=== PATIENT | female | born 1975 | race Caucasian/White ===

== ENCOUNTER → 2018-02-18 11:11 | Outpatient (POV) | payer BC, SELFPAY ==
[2018-02-18 11:21] VITALS: BP 143/92; PULSE 109; RESP 22; O2SAT 100; BMI 21.2
--- NOTE | 2018-02-18 11:48 | HMH.PAINSOAP ---
[facility] Pain Management SOAP Note Subjective:: Is a pleasant 42-year-old white female who presents today for consultation in regards to her pain. Patient has had a left SI joint injection in the past. She states she got 80% relief up to 6 weeks after that. Patient states she is here today for medication management. Patient was unable to attend a pill count with her primary care physician. Patient currently full-time employee of [employer]. Patient had a nuchal swab done at her primary care physician which showed positive for oxycodone instead of hydrocodone. Patient no longer receiving medication from her primary care. Patient was on a low-dose [place] 5 mg 1 p.o. twice daily. I will send the patient for urine drug screen and confirmation today. I discussed with her that we never typically take over medications on her first visit and she has not been seen for a year. I also discussed that we do not typically take over medications for people who have failed pill counts or drug screens. Patient states she understands. Patient is also interested in an additional left SI joint injection. Patient has Crohn's disease and is being followed by Dr. Devonte Davis. ROS General: no recent weight change, no fever, no sleep disturbances Respiratory: no cough, no shortness of air, no recurring pulmonary infections Cardiovascular/Peripheral Vascular: No chest pain, No palpitations, no edema, no shortness of breath. Gastrointestinal: Crohn's disease Genitourinary: no incontinence Musculoskeletal: SI joint pain Psychiatric: normal mood/ affect, Neurological: [denies weakness in extremities], [denies balance issues] Objective:: Physical Exam General: Alert and oriented x3, no acute distress, pleasant and cooperative, [on room air] Lungs: Resps E/U, Symmetrical chest expansion, Eyes: PERRL Musculoskeletal: Flexion and extension of lumbar spine somewhat guarded secondary to pain, deep tendon reflexes normal, strength in upper and lower extremities [5/5], antalgic gait noted, positive Jose's test on the left side, extreme point tenderness over left SI Neurological: speech clear, softlines supervisor equal, no gross sensory deficits Assessment:: Sacroiliitis, Crohn's disease Plan:: We will send this patient for UDS and a confirmation. Patient understands that we will not make any decisions about medical management until we review all of this. We will schedule left SI joint injection for this patient. Given the efficacy of her last one I believe that this would be beneficial. Patient is on anti-inflammatories. This note was dictated using voice recognition software and may contain errors or omissions
--- NOTE | 2018-02-18 11:51 | P.CONS_ITS ---
[facility] Pain Management SOAP Note Subjective:: Is a pleasant 42-year-old white female who presents today for consultation in regards to her pain. Patient has had a left SI joint injection in the past. She states she got 80% relief up to 6 weeks after that. Patient states she is here today for medication management. Patient was unable to attend a pill count with her primary care physician. Patient currently full-time employee of [employer]. Patient had a nuchal swab done at her primary care physician which showed positive for oxycodone instead of hydrocodone. Patient no longer receiving medication from her primary care. Patient was on a low-dose [place] 5 mg 1 p.o. twice daily. I will send the patient for urine drug screen and confirmation today. I discussed with her that we never typically take over medications on her first visit and she has not been seen for a year. I also discussed that we do not typically take over medications for people who have failed pill counts or drug screens. Patient states she understands. Patient is also interested in an additional left SI joint injection. Patient has Crohn' s disease and is being followed by Dr. Devonte Davis. ROS General: no recent weight change, no fever, no sleep disturbances Respiratory: no cough, no shortness of air, no recurring pulmonary infections Cardiovascular/Peripheral Vascular: No chest pain, No palpitations, no edema, no shortness of breath. Gastrointestinal: Crohn's disease Genitourinary: no incontinence Musculoskeletal: SI joint pain Psychiatric: normal mood/ affect, Neurological: [denies weakness in extremities], [denies balance issues] Objective:: Physical Exam General: Alert and oriented x3, no acute distress, pleasant and cooperative, [ on room air] Lungs: Resps E/U, Symmetrical chest expansion, Eyes: PERRL Musculoskeletal: Flexion and extension of lumbar spine somewhat guarded secondary to pain, deep tendon reflexes normal, strength in upper and lower extremities [5/5], antalgic gait noted, positive Jose's test on the left side, extreme point tenderness over left SI Neurological: speech clear, professor of religion equal, no gross sensory deficits Assessment:: Sacroiliitis, Crohn's disease Plan:: We will send this patient for UDS and a confirmation. Patient understands that we will not make any decisions about medical management until we review all of this. We will schedule left SI joint injection for this patient. Given the efficacy of her last one I believe that this would be beneficial. Patient is on anti-inflammatories. This note was dictated using voice recognition software and may contain errors or omissions
[2018-02-18 12:41] LABS: Amphetamine/Metha Screen,Urine Negative ng/mL (<1000); Barbiturates Screen,Urine Negative ng/mL (<200); Benzodiazepines Screen,Urine Negative ng/mL (200); Cannabinoid Screen,Urine Negative ng/mL (<50); Cocaine Screen,Urine Negative ng/g (<300); Methadone Screen,Urine Negative ng/mL (<300); Opiate Screen,Urine Negative ng/mL (<300); Phencyclidine Screen,Urine Negative ng/mL (<25)
[2018-02-27 15:49] LABS: Opiates Negative (Cutoff=100)
== END ==
PROVIDERS: Family Provider Internal Medicine Adolescent Medicine; PCP Internal Medicine Adolescent Medicine; Visit Provider Clinical Nurse Specialist Family Health
DX: M46.1 Sacroiliitis, not elsewhere classified (principal); Z79.899 Other long term (current) drug therapy
CPT/HCPCS: 80305; 80361; 80365; 99212; G0480

== ENCOUNTER → 2018-03-11 14:35 | Outpatient (CLI) | payer BC, SELFPAY ==
--- NOTE | 2018-03-11 14:41 | XR_ITS ---
XR hip LT 2-3V w/pelvis HISTORY: ITS.REASON: Left hip pain ORDERING PHYSICIAN: eG Owens MD PATIENT AGE: 42 years COMPARISON: 09/05/2016 FINDINGS: No fracture or dislocation is evident. No significant degenerative change. No lytic or blastic change. Unremarkable soft tissues IMPRESSION: Negative left hip
== END ==
PROVIDERS: PCP Internal Medicine Adolescent Medicine; Visit Provider Orthopaedic Surgery
DX: M25.552 Pain in left hip (principal)
CPT/HCPCS: 73502

== ENCOUNTER → 2018-03-31 11:32 | Outpatient (POV) | payer BC, SELFPAY ==
[2018-03-31 11:45] VITALS: BP 144/83; PULSE 92; RESP 18; O2SAT 98; BMI 20.9
--- NOTE | 2018-03-31 13:04 | HMH.PAINSOAP ---
[facility] Pain Management SOAP Note Subjective:: Patient is a pleasant 42-year-old white female who presents today for follow-up. Most recently had a left SI joint injection. Patient states it did help some however it was not long-lasting. Patient states most of her pain is in her left hip. Patient was seen by orthopedic and told she has bursitis. Patient has not done any physical therapy or ultrasound therapy at this time. Patient rates her pain a 5 out of 10 today. Patient still works full-time. Patient has not tried any gabapentin and helping relieve her symptoms. ROS General: no recent weight change, no fever, no sleep disturbances Respiratory: no cough, no shortness of air, no recurring pulmonary infections Cardiovascular/Peripheral Vascular: No chest pain, No palpitations, no edema, no shortness of breath. Gastrointestinal: no incontinence, normal bowel movements reported Genitourinary: no incontinence Musculoskeletal: Left hip pain Psychiatric: normal mood/ affect Neurological: [denies weakness in extremities], [denies balance issues] Objective:: Physical Exam General: Alert and oriented x3, no acute distress, pleasant and cooperative, on room air Lungs: Resps E/U, Symmetrical chest expansion, Eyes: PERRL Musculoskeletal: Flexion and extension of lumbar spine somewhat guarded secondary to pain, deep tendon reflexes normal, strength in upper and lower extremities [5/5], gait noted, positive Jose's test on the left side, extreme point tenderness over left greater trochanteric bursa Neurological: speech clear, gauge maker apprentice equal, no gross sensory deficits Assessment:: Sacroiliitis, bursitis Plan:: We will start the patient on gabapentin 100 mg 1 p.o. twice daily. Patient is to be taking the medication 1 pill at night for a week and titrating up slowly. We will also get the patient physical therapy in order to help with some SI joint stretches along with ultrasound therapy for her bursitis. I will follow-up with this patient after some of her physical therapy sessions. If patient does well with the gabapentin twice daily we can increase her to 100 mg 3 times a day and then eventually 300 mg 3 times a day. This note was dictated using voice recognition software and may contain errors or omissions
--- NOTE | 2018-03-31 13:08 | P.CONS_ITS ---
[facility] Pain Management SOAP Note Subjective:: Patient is a pleasant 42-year-old white female who presents today for follow- up. Most recently had a left SI joint injection. Patient states it did help some however it was not long-lasting. Patient states most of her pain is in her left hip. Patient was seen by orthopedic and told she has bursitis. Patient has not done any physical therapy or ultrasound therapy at this time. Patient rates her pain a 5 out of 10 today. Patient still works full-time. Patient has not tried any gabapentin and helping relieve her symptoms. ROS General: no recent weight change, no fever, no sleep disturbances Respiratory: no cough, no shortness of air, no recurring pulmonary infections Cardiovascular/Peripheral Vascular: No chest pain, No palpitations, no edema, no shortness of breath. Gastrointestinal: no incontinence, normal bowel movements reported Genitourinary: no incontinence Musculoskeletal: Left hip pain Psychiatric: normal mood/ affect Neurological: [denies weakness in extremities], [denies balance issues] Objective:: Physical Exam General: Alert and oriented x3, no acute distress, pleasant and cooperative, on room air Lungs: Resps E/U, Symmetrical chest expansion, Eyes: PERRL Musculoskeletal: Flexion and extension of lumbar spine somewhat guarded secondary to pain, deep tendon reflexes normal, strength in upper and lower extremities [5/5], gait noted, positive Jose's test on the left side, extreme point tenderness over left greater trochanteric bursa Neurological: speech clear, sewer cleaner equal, no gross sensory deficits Assessment:: Sacroiliitis, bursitis Plan:: We will start the patient on gabapentin 100 mg 1 p.o. twice daily. Patient is to be taking the medication 1 pill at night for a week and titrating up slowly. We will also get the patient physical therapy in order to help with some SI joint stretches along with ultrasound therapy for her bursitis. I will follow- up with this patient after some of her physical therapy sessions. If patient does well with the gabapentin twice daily we can increase her to 100 mg 3 times a day and then eventually 300 mg 3 times a day. This note was dictated using voice recognition software and may contain errors or omissions
== END ==
PROVIDERS: Family Provider Internal Medicine Adolescent Medicine; PCP Internal Medicine Adolescent Medicine; Visit Provider Clinical Nurse Specialist Family Health
DX: M46.1 Sacroiliitis, not elsewhere classified (principal)
CPT/HCPCS: 99212

== ENCOUNTER → 2018-06-13 13:26 | Outpatient (CLI) | payer BC, SELFPAY ==
--- NOTE | 2018-06-13 13:32 | MM_ITS ---
, MM Dig mamm BI DX w/CAD, US breast LT complete US breast RT complete ORDERING PHYSICIAN : Saúl Catalan MD PATIENT AGE: 42 years GENDER: Female COMPARISON: September 2017 bilateral mammogram with ultrasound breast and diagnostic mammogram October 2017. Also bilateral mammogram May 2015 HISTORY:6 month follow-up for cyst, dense breasts & bilateral breast densities TECHNIQUE: Std CC & MLO images were obtained. With additional CC, MLO spot views both breasts. R2 CAD reviewed. Images initially reviewed by Dr. Marquez above but now dictated by Dr. Cuellar for requested report To 10 ---DIAGNOSTIC MAMMOGRAM WITH SPOT VIEWS Moderately dense breast tissue bilaterally. Fibrocystic changes. RIGHT BREAST: Round density at the deep lateral right breast is less evident and seems smaller on today's mammogram, ( but subsequent ultrasound shows a similar persistent 2 cm cyst basically unchanged since 2017 ultrasound) Faint scattered punctate calcification most likely reflecting adenosis and fibrocystic calcifications upper-outer quadrant right breast noted but can be followed in one year. LEFT BREAST. Very dense appearance but similar. Overall architecture with no new unique new areas on mammography. Again the mammogram is quite limited in these areas of very dense breast tissue here at the superior and central left breast. Ultrasound was subsequently performed ---BILATERAL BREAST ULTRASOUND including axilla survey Survey of the entire right and left breast with additional survey of axillary regions bilateral. RIGHT BREAST ULTRASOUND.: 1:00 central breast 7 mm clear benign cyst 9:00. Largest cyst encountered outer breast 9 o'clock position. This measures up to 2 cm maximally & is similar to previous Oct 2017 ultrasound study. No significant appearing change by ultrasound but it does appear smaller on mammography. . trace wall thickening in some areas but overall appears to be a simple benign cyst. & Can be followed. If palpable and raises concern to the patient clinically we could easily aspirated this under ultrasound guidance if so desired 10:00 Outer breast up to 1.1 cm cyst just beneath the skin 10:00 on outer breast at the deep breast there is a smaller up to 5.6 mm mm cyst. 10:00 mid-breast. 9 mm likely debris-filled cyst versus early fibroadenoma. Not seen previously and thus I tend to favor was a cyst. 11:00 deep breast 4.6 mm debris-filled cyst. Benign appearing axillary nodes observed LEFT BREAST ULTRASOUND: Again comparison to the oct 2017 ultrasound study left breast 12:00 benign 4.3 mm cyst central breast. Stable 2:00 the 8.5 mm cyst central breast behind nipple. Unchanged 3:00. Debris-filled cyst versus early solid nodule not seen previously thus tend favor debris-filled cyst. 7 mm length x 3.6 mm AP. No unremarkable flow. 7:00 small up to 4.5 mm cyst central breast.. 10:00. Bilobed 7 mm cyst. Slightly debris-filled cyst present before with only slight change in shape. Axillary survey. Nonspecific nodes. =========IMPRESSION: ... Dense breast. Bilateral decrease sensitivity mammography . Ultrasound. Shows Benign-appearing cysts bilaterally with new likely debris-filled cyst bilaterally on which would benefit from follow-up ultrasound in 6 months.. Left breast, new likely debris-filled cyst at 3:00 Right breast. New Likely debris-filled cyst at 10:00 Right breast summary 1. The Dominant 2 cm cyst lateral right breast appears shows no significant change size on ultrasound, but appears smaller on mammography.. Right mammogram with no additional new areas concern otherwise 2. As noted above today's right breast ultrasound shows a new likely debris-filled cyst
== END ==
PROVIDERS: Family Provider Internal Medicine Adolescent Medicine; PCP Internal Medicine Adolescent Medicine; Visit Provider Internal Medicine Adolescent Medicine
DX: R92.8 Other abnormal and inconclusive findings on diagnostic imaging of breast (principal)
CPT/HCPCS: 76641; 77066

== ENCOUNTER → 2020-01-01 13:07 | Outpatient (CLI) | payer BC, SELFPAY ==
--- NOTE | 2020-01-01 | US_ITS ---
PROCEDURE: MM DIG MAMM BI DX W/CAD CLINICAL INDICATION: BREAST PAIN,FIBROCYSTIC BREAST DISEASE COMPARISON: DMSB DIG MAMM-SCREEN NORMA W/CAD from 10/15/2017 DMDXUAVR DIG MAMM-DX UNI A/VW-RT W/CAD from 10/25/2017 BREASTLT US breast LT complete from 06/13/2018 BREASTRT US breast RT complete from 06/13/2018 DXBI MM Dig mamm BI DX w/CAD from 06/13/2018 US BREAST RT COMPLETE from 01/01/2020 US BREAST LT COMPLETE from 01/01/2020 TECHNIQUE: Standard CC and MLO images with spot compression views and 3D Tomosynthesis was obtained. R2 CAD reviewed. Bilateral breast ultrasound FINDINGS: There is dense fibroglandular tissue decreasing the sensitivity of mammography. Right breast: Scattered benign-appearing calcifications. No malignant appearing mass or malignant-appearing microcalcification. Right breast ultrasound: Previously noted 7 mm cyst at 1 o'clock is slightly smaller 5 x 3 mm an additional 5 mm cyst 12 o'clock. 6 mm cyst 6 o'clock, 9 mm cyst at 9 o'clock. This previously measured 2 cm. An additional 4 mm cyst present at 9 o'clock. A hypoechoic 8 mm nodules present 10 o'clock. This does contain some low level echoes with good through transmission of sound and is unchanged. A 12 x 8 mm cyst is noted at 10 o'clock and a 5 mm cyst present at 11 o'clock. Left breast: Benign-appearing calcification. There is a oval 19 x 14 mm area of decreased density in the inferior retroareolar region consistent with a lipoma not significantly changed. Left breast ultrasound: 8 mm hypoechoic nodule at 12 o'clock which may be due to a complicated cyst. 7 mm cyst at 2 o'clock, complicated 5 mm cyst at 3 o'clock. Previously there was a more solid-appearing nodule at this region margins are somewhat irregular but may be due to adjacent breast tissue. There is a 5 mm cyst at 7 o'clock, 7 mm cyst 9 o'clock and a septated 7 mm cyst at 11 o'clock. No suspicious lesions evident the the IMPRESSION: BI-RAD Category: 2 Benign Finding(s) FOLLOW-UP: 1YR 1 Year Follow-up (A letter has been sent to the patient regarding results of the study.) Dictated by: David Garcia MD 01/02/2020 11:39 Electronically signed by David Garcia MD in [place] 01/02/2020 11:39
== END ==
PROVIDERS: PCP Family Medicine; Visit Provider Family Medicine
DX: N64.4 Mastodynia (principal); N60.19 Diffuse cystic mastopathy of unspecified breast
CPT/HCPCS: 76641; 77062; 77066; G0279

== ENCOUNTER 2020-12-10 20:11 | Inpatient (IN) | payer BC, SELFPAY ==
[2020-12-10 20:12] VITALS: BP 136/84; PULSE 83; RESP 16; TEMP 37.2; O2SAT 100; BMI 22.1
--- NOTE | 2020-12-10 20:15 | ECG_ITS ---
APPROVED REPORT Exam: Resting ECG HR:77 bpm ECG Measurements Heart Rate 77 AXES MT 128 P 78 QRSd 86 QRS 80 QT 366 T 48 QTc 414 Conclusion Normal sinus rhythm Nonspecific ST abnormality Abnormal ECG Electronically signed by : Saúl Catalan, 12/11/2020 08:39:22
[2020-12-10 20:17] VITALS: BMI 22.1
--- NOTE | 2020-12-10 20:17 | XR_ITS ---
PROCEDURE: XR CHEST 2V CLINICAL HISTORY: cp Chest pain COMPARISON: CR CXR2V XR chest 2V from 03/12/[address] ABDOMEN PELVIS W CON from 12/10/2020 FINDINGS: The cardiomediastinal silhouette and pulmonary vascularity are within normal limits. The lungs are clear without infiltrates, suspicious nodules, or pleural effusions. Mild thoracolumbar curvature convex right IMPRESSION: No acute findings. Dictated by: David Garcia MD 12/11/2020 07:03 David Garcia MD in [facility] 12/11/2020 07:03
[2020-12-10 20:27] LABS: Basophils % 0.3 % (0.1-2.0); Eosinophils # 0.1 K/mm3 (0.0-0.4); Eosinophils % 0.5 % (0.1-12.0); Hematocrit 43.9 % (37.0-47.0); Hemoglobin 14.5 g/dL (12.2-16.2); Lymphocytes # 2.4 K/mm3 (0.7-4.5); Lymphocytes % 15.5 % (10-50); Mean Corpuscular Hemoglobin 29.9 pg (27.0-31.2); Mean Corpuscular Volume 90.7 fl (81-99); Mean Platelet Volume 7.9 fl (7.4-10.4); Monocytes # 0.9 K/mm3 (0.1-1.0); Monocytes % 5.8 % (1.7-9.3); Neutrophils # 12.3 K/mm3 (1.8-7.8); Platelet Count 262 K/mm3 (142-424); Red Blood Count 4.84 M/mm3 (4.20-5.40); Red Cell Distribution Width 13.2 % (11.5-17.5); White Blood Count 15.8 K/mm3 (4.8-10.8)
[2020-12-10 20:28] LABS: Chloride 103 mmol/L (98-107); MANUAL DIFFERENTIAL MANUAL DIFFERENTIAL (MANUAL DIFF); Potassium 3.7 mmoL/L (3.5-5.1); Sodium 139 mmol/L (136-145)
[2020-12-10 20:30] VITALS: BP 117/72
[2020-12-10 20:30] LABS: Alanine Aminotransferase 113 U/L (12-78); Alkaline Phosphatase 113 U/L (38-126); Aspartate Amino Transferase 265 U/L (14-36); Bilirubin,Direct 0.6 mg/dl (0.0-0.4); Bilirubin,Indirect 0.4 mg/dL (0.0-0.9); Bilirubin,Unconjugated 0.4 mg/dL (0.0-1.1)
[2020-12-10 20:31] LABS: Albumin Level 4.5 g/dl (3.5-5.0); Anion Gap 10.7 mEq/L (5-15); Blood Urea Nitrogen 14 mg/dl (7-17); Calcium 9.7 mg/dl (8.4-10.2); Carbon Dioxide 29 mmol/L (22.0-30.0); Creatinine Clearance Estimated 105 mL/min (50-200); Estimated Glomerular Filt Rate 108 ml/min (>60); GFR (African American) 130 ML/MIN (>60); Glucose 128 mg/dl (74-100); Total Protein,Serum 8.1 g/dl (6.3-8.2)
--- NOTE | 2020-12-10 20:40 | CT_ITS ---
PROCEDURE: CT ABDOMEN PELVIS W CON CLINICAL INDICATION: epigastric pain Epigastric pain, right-sided abdominal pain, history of Crohn's disease COMPARISON: CT ABDPELW CT ABD PELVIS W/ CONTRAST from 05/22/2016 TECHNIQUE: IV Contrast: 75ML Isovue 370 Oral Contrast None Axial images obtained with sagittal and coronal reformats. All CT scans at the facility use one or more dose reduction, viz: automated exposure control, ma/kV adjustment per patient size (including targeted exams where dose is matched to indication, i.e. head), or iterative reconstruction technique. FINDINGS: LOWER THORAX: No acute finding ABDOMEN & PELVIS: The liver, spleen, adrenal glands, pancreas, and kidneys have an unremarkable appearance. There is a mild amount of retained colonic feces. Common hepatic duct is mildly prominent at 9 mm. There is some mild periportal edema. There is some enhancement of the gallbladder wall with questionable pericholecystic fluid. Gallbladder ultrasound may provide further evaluation. No evidence of appendicitis or diverticulitis. There has been a prior cholecystectomy. There is some mild thickening versus under distention of the splenic flexure of the colon. No acute bony findings. IMPRESSION: 1. Mild prominence of the common hepatic duct and questionable pericholecystic fluid and gallbladder wall thickening. This does raises suspicion of acute cholecystitis. Gallbladder ultrasound suggested for further evaluation. 2. Mild thickening versus under distention of the sigmoid colon. Possible colitis. Dictated by: David Garcia MD 12/11/2020 09:15 David Garcia MD in [facility] 12/11/2020 09:15
[2020-12-10 20:43] LABS: Troponin I < 0.01 ng/ml (0.00-0.034)
[2020-12-10 20:48] LABS: Lymphocytes % 14 % (10-50); Neutrophils % 79 % (42-76); Platelet Estimate Normal; RBC Morphology Normal; Total Cells Counted 100
[2020-12-10 20:57] LABS: C-Reactive Protein 12.9 mg/L (0-4)
--- NOTE | 2020-12-10 21:01 | ECG_ITS ---
APPROVED REPORT Exam: Resting ECG HR:68 bpm ECG Measurements Heart Rate 68 AXES WA 146 P 78 QRSd 86 QRS 76 QT 380 T 63 QTc 404 Conclusion Normal sinus rhythm Normal ECG Electronically signed by : Saúl Catalan, 12/12/2020 14:16:17
[2020-12-10 21:02] LABS: Microscopic, Urine URINE MICROSCOPIC (MICROSCOPIC)
--- NOTE | 2020-12-10 21:04 | PC.NURSE ---
PO contrast finished at this time
[2020-12-10 21:07] LABS: Appearance,Urine SL CLOUDY (Clear); Bilirubin,Urine Negative (Negative); Blood, Urine TRACE-I (Negative); Color,Urine YELLOW (Yellow); Glucose,Urine (UA) Negative (Negative); Ketones,Urine Negative (Negative); Leukocyte Esterase,Urine Negative (Negative); Nitrate,Urine Negative (Negative); Protein,Urine Negative (Negative)
[2020-12-10 21:10] LABS: Amorphous Sediment,Urine 2+ /lpf; Squamous Epithelial Cell,Urine Occasional #/hpf (0-5)
[2020-12-10 21:11] LABS: Amylase 1978 U/L (30-110); Procalcitonin 0.051 ng/mL (0.0-2.0)
[2020-12-10 21:12] LABS: Erythrocyte Sedimentation Rate 9 mm/hr (0-20)
[2020-12-10 21:30] VITALS: BP 113/66; PULSE 80; RESP 16; O2SAT 97
[2020-12-10 22:00] VITALS: BP 105/73
[2020-12-10 23:00] VITALS: BP 114/79; PULSE 63; RESP 16; O2SAT 100
--- NOTE | 2020-12-10 23:10 | HMH.EDCP ---
ED Disposition Clinical Impression: Cholecystitis, Tobacco use Pancreatitis, acute Qualifiers: Pancreatitis type: biliary Acute pancreatitis complication: no infection or necrosis Qualified Code(s): K85.10 - Biliary acute pancreatitis without necrosis or infection Crohn's disease Qualifiers: Gastrointestinal tract location: unspecified location Digestive disease complication type: unspecified complication Qualified Code(s): K50.919 - Crohn's disease, unspecified, with unspecified complications Chest pain Qualifiers: Chest pain type: unspecified Qualified Code(s): R07.9 - Chest pain, unspecified Disposition: Admitted as Observation Condition on Discharge: Good Referrals: Pal Leavitt [Primary Care Provider] - - Critical Care Critical Care Time: No Attestation: On 12/10/20, the high probability of a clinically significant, sudden or life threatening deterioration of the following system(s) required my full and direct attention, intervention and personal management. The time I documented below is in addition to time spent performing reported procedures but includes the following listed in this critical care notation. Medical Decision Making - Medical Records Medical records reviewed: Yes: I reviewed the patient's medical records. - [place] Inquiry Pt receiving controlled substance: No Vital Signs: 12/10/20 20:12 12/10/20 20:30 12/10/20 21:30 Temperature 99.0 F Temperature Source Oral Pulse Rate [Right Radial] 83 80 Respiratory Rate 16 16 Blood Pressure [Right Arm] 136/84 117/72 113/66 Blood Pressure Mean [Right Arm] 101 87 81 Blood Pressure Source [Right Arm] Automatic Cuff Automatic Cuff Automatic Cuff Blood Pressure Position [Right Arm] Supine Supine Supine 02 Sat by Pulse Oximetry 100 97 Oxygen Delivery Method Room Air Room Air 12/10/20 22:00 12/10/20 23:00 Temperature Temperature Source Pulse Rate [Right Radial] 63 Respiratory Rate 16 Blood Pressure [Right Arm] 105/73 L 114/79 Blood Pressure Mean [Right Arm] 83 90 Blood Pressure Source [Right Arm] Automatic Cuff Blood Pressure Position [Right Arm] Supine 02 Sat by Pulse Oximetry 100 Oxygen Delivery Method Room Air - Lab Data Lab results reviewed: Yes: I reviewed the patient's lab results. Lab Results 12/10/20 20:10: WBC 15.8 H, RBC 4.84, Hgb 14.5, Hct 43.9, MCV 90.7, MCH 29.9, MCHC 33.0, RDW 13.2, Plt Count 262, MPV 7.9, Neut % (Auto) 78.0, Lymph % (Auto) 15.5, [place] % (Auto) 5.8, Eos % (Auto) 0.5, Baso % (Auto) 0.3, Neut # (Auto) 12.3 H, Lymph # (Auto) 2.4, [place] # (Auto) 0.9, Eos # (Auto) 0.1, Baso # (Auto) 0.0, Total Counted 100, Neutrophils % (Manual) 79 H, Band Neutrophils % 7.0, Lymphocytes % (Manual) 14, Platelet Estimate Normal, RBC Morphology Normal 12/10/20 20:10: Sodium 139, Potassium 3.7, Chloride 103, Carbon Dioxide 29, Anion Gap 10.7, BUN 14, Creatinine 0.60, Estimated Creat Clear 105, Estimated GFR 108, Est GFR ( Amer) 130, Glucose 128 H, Calcium 9.7, Troponin I < 0.01 12/10/20 20:10: Total Bilirubin 1.0, Direct Bilirubin 0.6 H, Conjugated Bilirubin 0.0, Indirect Bilirubin 0.4, Unconjugated Bilirubin 0.4, AST 265 H, ALT 113 H, Alkaline Phosphatase 113, Total Protein 8.1, Albumin 4.5 12/10/20 20:10: ESR 9 12/10/20 20:10: C-Reactive Protein 12.9 H, Amylase 1978 H*, Lipase 95211 H, Procalcitonin 0.051 12/10/20 20:10: SARS-CoV-2 IgG Ab (Rapid) Negative, SARS-CoV-2 IgM Ab (Rapid) Negative 12/10/20 20:59: Urine Color Yellow, Urine Appearance Sl cloudy, Urine pH 7.0, Ur Specific [place] 1.020, Urine Protein Negative, Urine Glucose (UA) Negative, Urine Ketones Negative, Urine Blood Trace-i, Urine Nitrate Negative, Urine Bilirubin Negative, Urine Urobilinogen 2.0, Ur Leukocyte Esterase Negative, Urine RBC 3-5, Urine WBC 3-5, Ur Squamous Epith Cells Occasional, Amorphous Sediment 2+ 12/10/20 23:30: Troponin I < 0.01 Result diagrams: 12/10/20 20:10 12/10/20 20:10 Orders (Tests/Meds): ED MEDICATIONS Generic Name Dos
[2020-12-10 23:30] VITALS: BP 133/68; PULSE 64; RESP 17; O2SAT 100
[2020-12-10 23:42] LABS: Coronavirus 19 IgG Antibody Negative (Negative); Coronavirus 19 IgM Antibody Negative (Negative)
[2020-12-11] VITALS (11 sets, daily range): BP systolic 101–128; BP diastolic 61–75; PULSE 50–74; RESP 15–20; TEMP 36.7–36.8; O2SAT 98–100; BMI 22.8
[2020-12-11 00:05] LABS: Troponin I < 0.01 ng/ml (0.00-0.034)
--- NOTE | 2020-12-11 00:09 | PC.NURSE ---
Anh speaking to Fara at this time regarding admission.
--- NOTE | 2020-12-11 00:40 | US_ITS ---
PROCEDURE: US GALLBLADDER CLINICAL INDICATION: Cholecystitis Upper abdominal pain COMPARISON: CT CT ABDOMEN PELVIS W CON from 12/10/2020 FINDINGS: Pancreas: Unremarkable/Not well seen Liver: Unremarkable. There is appropriate direction of blood flow within a non dilated portal vein. Right kidney: Unremarkable appearing. No hydronephrosis. Gallbladder: Gallstones are present. The gallbladder wall is slightly thickened at 4 mm. No pericholecystic fluid demonstrated. Common bile duct is normal at 5 mm. Technologist notes that there is tenderness over the gallbladder with palpation/positive sonographic Kilpatrick's. There is also suggestion choledocholithiasis. Areas of increased echogenicity with shadowing noted in the common bile duct. IMPRESSION: 1. Cholelithiasis with thickened gallbladder wall and tenderness over the gallbladder which may indicate acute cholecystitis. No pericholecystic fluid or biliary dilatation. 2. Suspect choledocholithiasis. MRCP may confirm Dictated by: David Garcia MD 12/11/2020 07:47 David Garcia MD in [place] 12/11/2020 07:47
--- NOTE | 2020-12-11 01:15 | PC.NURSE ---
patient up to floor via wheelchair.
[2020-12-11 03:13] LABS: Troponin I < 0.01 ng/ml (0.00-0.034)
[2020-12-11 03:23] LABS: Chol/HDL Ratio 1.9 (1-3.5); Cholesterol 173 mg/dl (140-200); HDL Cholesterol 90 mg/dl (40-60); Triglycerides 62 mg/dl (30-150); VLDL Cholesterol 12 mg/dL (0-40)
[2020-12-11 03:34] LABS: Direct LDL Cholesterol 61.62 mg/dL (100-129)
--- NOTE | 2020-12-11 04:48 | PC.NURSE ---
Pt is A&Ox4. Lung sounds CTA. VSS. No edema noted to extremities. Hypoactive bowel sounds in all 4 quads. NO BM noted this shift. Abdomen remains soft and tender t/o. Pt ambulates independently w/ steady gait and balance. No other acute changes or complaints at this time.
[2020-12-11 07:35] LABS: Basophils # 0.1 K/mm3 (0-0.2); Basophils % 0.6 % (0.1-2.0); Eosinophils # 0.2 K/mm3 (0.0-0.4); Eosinophils % 2.4 % (0.1-12.0); Hematocrit 36.3 % (37.0-47.0); Lymphocytes # 2.1 K/mm3 (0.7-4.5); Lymphocytes % 26.4 % (10-50); Mean Corpuscular HGB Conc 33.4 g/dL (31.8-35.4); Mean Corpuscular Hemoglobin 30.5 pg (27.0-31.2); Mean Corpuscular Volume 91.4 fl (81-99); Monocytes # 0.5 K/mm3 (0.1-1.0); Monocytes % 6.3 % (1.7-9.3); Neutrophils # 5.2 K/mm3 (1.8-7.8); Neutrophils % 64.2 % (37.0-80.0); Platelet Count 212 K/mm3 (142-424); Red Blood Count 3.97 M/mm3 (4.20-5.40); Red Cell Distribution Width 13.4 % (11.5-17.5); White Blood Count 8.1 K/mm3 (4.8-10.8)
[2020-12-11 07:38] LABS: Hemoglobin 12.1 g/dL (12.2-16.2)
[2020-12-11 07:40] LABS: Alanine Aminotransferase 151 U/L (12-78); Albumin Level 3.3 g/dl (3.5-5.0); Albumin/Globulin Ratio 1.1 (1.1-1.8); Alkaline Phosphatase 102 U/L (38-126); Amylase 571 U/L (30-110); Anion Gap 6.6 mEq/L (5-15); Aspartate Amino Transferase 201 U/L (14-36); Bilirubin,Total 0.4 mg/dl (0.2-1.3); Blood Urea Nitrogen 7 mg/dl (7-17); Calcium 8.3 mg/dl (8.4-10.2); Carbon Dioxide 26 mmol/L (22.0-30.0); Chloride 108 mmol/L (98-107); Creatinine Clearance Estimated 130 mL/min (50-200); Estimated Glomerular Filt Rate 133 ml/min (>60); GFR (African American) 161 ML/MIN (>60); Globulin 2.9 g/dL (1.3-3.2); Glucose 92 mg/dl (74-100); Potassium 3.6 mmoL/L (3.5-5.1); Sodium 137 mmol/L (136-145); Total Protein,Serum 6.2 g/dl (6.3-8.2)
--- NOTE | 2020-12-11 07:54 | HMH.HP ---
*Admission Date: 12/11/20 *Chief complaint: abdominal and lower chect pain *History of present illness: Ms. Coleman is a 45yo WF with Hx of Crohn's, tobacco use (1 pack a day for 5 years), who presents with abdominal pain to the ER. She presented yesterday after acute onset of burning epigastric pain at about 430. It occurred after eating and was associated with some nausea. Radiated to her back on both sides. Denies bridger emesis or diarrhea. Also had reported diaphoresis in the ER. Initial work-up with EKG had nonspecific ST depressions that resolved as her pain improved. Additionally she had gross abnormality with her liver and pancreas enzymes showing suspicion for pancreatitis, cholecyctitis, or other intra-abdominal pathology. CT abdomen was obtained showing distended gallbladder but no bridger stones. Ultrasound was able to be obtained as well which showed gallstones and stones within the common bile duct. Patient was made n.p.o., admitted to medicine for further management of choledocholithiasis with secondary pancreatitis. On assessment this morning, patient states she is feeling better. Reports she is actually had some discomfort after eating for a few days until acute severe onset yesterday caused her to come to the ER. Has seen a mud worker in [place] previously (Dr. Davis) for her Crohn's disease but has not seen him in quite some time. Denies any nausea at this time and pain well controlled. No shortness of breath, chest pain, palpitations, diarrhea, confusion. Tolerating ice chips [facility] History I have reviewed the patient's past medical history: Yes Medical History: Reports:: Asthma Denies:: Cancer, Diabetes Mellitus Type 1, Diabetes Mellitus Type 2, MRSA *Have you ever received a pneumonia vaccine?: No *Have you received a flu vaccine this season?: No Other Medical History: Reports: Hormone Therapy Comment:: Crohn's disease/inflammatory bowel disease Other Surgeries: Yes: Colonoscopy, EGD, Hysterectomy-Total Amputation: No Fractures: No - *Social History Last grade of school completed: Advanced degree Smoking Status: Current every day smoker Tobacco Type: cigarettes # Packs/Day (cigarettes): 1 Alcohol Intake: never *Occupational Status:: unemployed Housing: house Household Members: spouse *Travel in the last 8 weeks: None Family Hx:: Cancer, Heart Attack, Thyroid Disorder Review of Systems - Review of Systems Review of systems:: pertinent systems reviewed and negative unless documented below (14 point review of systems performed, pertinent positives and negatives as per HPI) - *Neurologic Denies localized weakness Meds Home Medications Medication Instructions Recorded Confirmed Type vitamin B complex 1 tab PO ONCE 03/11/18 12/11/20 History Estrogens, Conjugated [Premarin] 1.25 mg PO DAILY 12/10/20 12/11/20 History Hydrocodone/Acetaminophen 1 tab PO Q6H PRN 12/10/20 12/11/20 History [Hydrocodone-Acetamin 5-325 mg] Allergies Allergy/AdvReac Type Severity Reaction Status Date / Time No Known Allergies Allergy Verified 09/12/19 14:00 Exam Vital signs and Labs for Last 24 Hours: Temp Pulse Resp BP Pulse Ox 98.0 F 71 16 101/61 L 99 12/11/20 04:00 12/11/20 04:00 12/11/20 04:00 12/11/20 04:00 12/11/20 04:00 Laboratory Results - last 24 hr 12/10/20 20:10: WBC 15.8 H, RBC 4.84, Hgb 14.5, Hct 43.9, MCV 90.7, MCH 29.9, MCHC 33.0, RDW 13.2, Plt Count 262, MPV 7.9, Neut % (Auto) 78.0, Lymph % (Auto) 15.5, [place] % (Auto) 5.8, Eos % (Auto) 0.5, Baso % (Auto) 0.3, Neut # (Auto) 12.3 H, Lymph # (Auto) 2.4, [place] # (Auto) 0.9, Eos # (Auto) 0.1, Baso # (Auto) 0.0, Total Counted 100, Neutrophils % (Manual) 79 H, Band Neutrophils % 7.0, Lymphocytes % (Manual) 14, Platelet Estimate Normal, RBC Morphology Normal 12/10/20 20:10: Sodium 139, Potassium 3.7, Chloride 103, Carbon Dioxide 29, Anion Gap 10.7, BUN 14, Creatinine 0.60, Estimated Creat Clear 105, Estimated GFR 108, Est GFR (
[2020-12-11 08:01] LABS: Lipase 4077 U/L (23-300)
--- NOTE | 2020-12-11 11:26 | P.CONPHA_ITS ---
[facility] Pharmacy VTE Monitoring - Patient Demographics Admission date: 12/10/20 Report Date: 12/11/20 Time: 11:27 Allergies/Adverse Reactions: Patient Allergies No Known Allergies Allergy (Verified 09/12/19 14:00) Height: 1.6 m Weight: 58.542 kg Patient Problems: Current Active Problems Tobacco use (Chronic) Pancreatitis, acute (Acute) Cholecystitis (Acute) Crohn's disease (Chronic) Chest pain (Acute) Choledocholithiasis with acute cholecystitis (Acute) - VTE Risk Labs: VTE Related Lab Results Hgb 12.1 g/dL (12.2-16.2) L D 12/11/20 06:10 Hct 36.3 % (37.0-47.0) L 12/11/20 06:10 Plt Count 212 K/mm3 (142-424) 12/11/20 06:10 BUN 7 mg/dl (7-17) D 12/11/20 06:10 Creatinine 0.50 mg/dl (0.52-1.04) L 12/11/20 06:10 Estimated Creat Clear 130 mL/min (50-200) 12/11/20 06:10 VTE Score: 4 VTE Risk Level: Low Risk - Prophylaxis VTE Prophylaxis Ordered?: Yes Types of VTE Prophylaxis: TEDS Knee High Location of Applied Device: Bilateral Lower Extremeties
--- NOTE | 2020-12-11 11:27 | HMH.PHAINT ---
MEDICATION RECONCILIATION COMPLETED ON PATIENT USING EXTERNAL FILL HISTORY FROM PHARMACY. -ALFONZO CAMARENA, JAMEYD
--- NOTE | 2020-12-11 15:11 | PC.NURSE ---
PT IS RESTING IN BED. RECEIVED PAIN MEDICATION X1 THIS SHIFT. PT HAS SOME ABDOMINAL TENDERNESS IN THE RUQ/LUQ. TOLERATING CLEAR LIQUIDS WELL. LUNG SOUNDS CLEAR. BOWEL SOUNDS NORMAL. PT HAS BEEN AMBULATING TO THE BATHROOM AND AROUND THE ROOM. VSS. WILL CONTINUE TO MONITOR.
[2020-12-12] VITALS (15 sets, daily range): BP systolic 111–139; BP diastolic 66–81; PULSE 53–83; RESP 16–20; TEMP 36.2–37.1; O2SAT 98–100; BMI 22.8
--- NOTE | 2020-12-12 06:30 | PC.NURSE ---
Pt is A&O x4. Pt rested well this shift. Pt has c/o abdominal pain and nausea x1. PRN pain and antiemetic meds administered per MAR. Pt was NPO after midnight, tolerated clear liquids appropriately prior to. No other complaints or acute changes at this time.
[2020-12-12 07:12] LABS: Alanine Aminotransferase 109 U/L (12-78); Albumin Level 3.4 g/dl (3.5-5.0); Albumin/Globulin Ratio 1.2 (1.1-1.8); Alkaline Phosphatase 100 U/L (38-126); Anion Gap 5.4 mEq/L (5-15); Aspartate Amino Transferase 74 U/L (14-36); Bilirubin,Total 0.5 mg/dl (0.2-1.3); Blood Urea Nitrogen 4 mg/dl (7-17); Calcium 8.3 mg/dl (8.4-10.2); Carbon Dioxide 27 mmol/L (22.0-30.0); Chloride 108 mmol/L (98-107); Creatinine Clearance Estimated 130 mL/min (50-200); Estimated Glomerular Filt Rate 133 ml/min (>60); GFR (African American) 161 ML/MIN (>60); Globulin 2.9 g/dL (1.3-3.2); Glucose 94 mg/dl (74-100); Magnesium 1.9 mg/dl (1.6-2.3); Potassium 3.4 mmoL/L (3.5-5.1); Sodium 137 mmol/L (136-145); Total Protein,Serum 6.3 g/dl (6.3-8.2)
[2020-12-12 07:17] LABS: Basophils % 0.4 % (0.1-2.0); Eosinophils # 0.1 K/mm3 (0.0-0.4); Eosinophils % 2.1 % (0.1-12.0); Hematocrit 38.5 % (37.0-47.0); Hemoglobin 12.9 g/dL (12.2-16.2); Lymphocytes # 2.3 K/mm3 (0.7-4.5); Lymphocytes % 34.6 % (10-50); Mean Corpuscular HGB Conc 33.5 g/dL (31.8-35.4); Mean Corpuscular Hemoglobin 30.8 pg (27.0-31.2); Monocytes # 0.4 K/mm3 (0.1-1.0); Monocytes % 5.8 % (1.7-9.3); Neutrophils # 3.7 K/mm3 (1.8-7.8); Neutrophils % 57.1 % (37.0-80.0); Platelet Count 222 K/mm3 (142-424); Red Blood Count 4.19 M/mm3 (4.20-5.40); Red Cell Distribution Width 13.3 % (11.5-17.5); White Blood Count 6.5 K/mm3 (4.8-10.8)
--- NOTE | 2020-12-12 08:26 | P.PN_ITS ---
Internal Medicine - PN: Subj *Date: 12/12/20 *Time: 08:26 Interval history: Overall patient feels better, slept well, took off her nicotine patch because she thought it was keeping her awake. Exam Vital signs and Labs for Last 24 Hours: Temp Pulse Resp BP Pulse Ox 97.8 F 83 17 123/66 99 12/12/20 04:00 12/12/20 04:00 12/12/20 04:00 12/12/20 04:00 12/12/20 04:00 Laboratory Results - last 24 hr 12/12/20 06:10: WBC 6.5, RBC 4.19 L, Hgb 12.9, Hct 38.5, MCV 92.0, MCH 30.8, MCHC 33.5, RDW 13.3, Plt Count 222, MPV 8.0, Neut % (Auto) 57.1, Lymph % (Auto) 34.6, [place] % (Auto) 5.8, Eos % (Auto) 2.1, Baso % (Auto) 0.4, Neut # (Auto) 3.7, Lymph # (Auto) 2.3, [place] # (Auto) 0.4, Eos # (Auto) 0.1, Baso # (Auto) 0.0 12/12/20 06:10: Sodium 137, Potassium 3.4 L, Chloride 108 H, Carbon Dioxide 27, Anion Gap 5.4, BUN 4 L D, Creatinine 0.50 L, Estimated Creat Clear 130, Estimated GFR 133, Est GFR ( Amer) 161, Glucose 94, Calcium 8.3 L, Magnesium 1.9, Total Bilirubin 0.5, AST 74 H D, ALT 109 H D, Alkaline Phosphatase 100, Total Protein 6.3, Albumin 3.4 L, Globulin 2.9, Albumin/Globulin Ratio 1.2 I & O for Last 24 hours: Intake & Output 12/09/20 12/10/20 12/11/20 12/12/20 11:59 11:59 11:59 11:59 Intake Total 2049 1200 / 1200 Output Total 120 / 120 Balance 2049 1080 / 1080 Weight 129 lb 1 oz 129 lb 3 oz Narrative: Alert, pleasant, oriented x3. Cardiopulmonary exam, ENT exam and neurologic exam unremarkable. No rash. Minimal epigastric tenderness, vastly improved, no periumbilical or flank bruising. Assessment and Plan (1) Choledocholithiasis with acute cholecystitis Status: Acute Category: Medical Code(s): K80.42 - Calculus of bile duct with acute cholecystitis without obstruction (2) Pancreatitis, acute Status: Acute Qualifiers: Pancreatitis type: biliary Acute pancreatitis complication: no infection or necrosis Qualified Code(s): K85.10 - Biliary acute pancreatitis without necrosis or infection Category: Medical Code(s): K85.90 - Acute pancreatitis without necrosis or infection, unspecified (3) Crohn's disease Status: Chronic Qualifiers: Gastrointestinal tract location: unspecified location Digestive disease complication type: unspecified complication Qualified Code(s): K50.919 - Crohn 's disease, unspecified, with unspecified complications Category: Medical Code(s): K50.90 - Crohn's disease, unspecified, without complications (4) Tobacco use Status: Chronic Category: Social Hx Code(s): Z72.0 - Tobacco use - Assessment and plan all Dx Assessment and Plan for all problems:: Pancreatitis secondary to choledocholithiasis with acute cholecystitis. Dr. De Souza today for ERCP evaluation, surgery consult. Remains n.p.o.
--- NOTE | 2020-12-12 08:50 | FL_ITS ---
PROCEDURE: FL ERCP CLINICAL INDICATION: Pancreatitis Choledocholithiasis COMPARISON: CT CT ABDOMEN PELVIS W CON from 12/10/2020 FINDINGS: Fluoroscopy time: 3 minutes and 2 seconds. contrast injected in the common bile duct with multiple filling defects which may be due to stones or air bubbles or a combination there. A biliary stent was placed. IMPRESSION: Multiple filling defects in the common duct which may be due to air bubbles or stones or a combination there of with biliary stent placed. Dictated by: David Garcia MD 12/12/2020 17:07 David Garcia MD in [place] 12/12/2020 17:07
--- NOTE | 2020-12-12 12:19 | HMH.GSCON ---
*Admission Date: 12/10/20 *Reason for consult:: Biliary pancreatitis *History of present illness: Patient is a very pleasant 45-year-old female who presented to the emergency department in the evening of 12/10/2020 with acute onset of epigastric pain. This occurred postprandially with some nausea. She had radiation into the chest and around bilateral upper quadrants and into the back. Laboratory findings revealed abnormal liver function tests and elevation of pancreatic enzymes. CT abdomen was obtained showing distended gallbladder but no bridger stones. Ultrasound was able to be obtained and this showed findings suggestive of choledocholithiasis. Gastroenterology consultation as well as surgical consultations were obtained. Review of Systems - Review of Systems Review of systems:: pertinent systems reviewed and negative unless documented below - *Neurologic Denies localized weakness [facility] History Medical History: Reports:: Asthma Denies:: Cancer, Diabetes Mellitus Type 1, Diabetes Mellitus Type 2, MRSA *Have you ever received a pneumonia vaccine?: No *Have you received a flu vaccine this season?: No Other Medical History: Reports: Hormone Therapy Other Surgeries: Yes: Colonoscopy, EGD, Hysterectomy-Total Amputation: No Fractures: No - *Social History Last grade of school completed: Advanced degree Smoking Status: Current every day smoker Tobacco Type: cigarettes # Packs/Day (cigarettes): 1 Alcohol Intake: never *Occupational Status:: unemployed Housing: house Household Members: spouse *Travel in the last 8 weeks: None Family Hx:: Cancer, Heart Attack, Thyroid Disorder Meds Home Medications Medication Instructions Recorded Confirmed Type vitamin B complex 1 tab PO DAILY 03/11/18 12/11/20 History Estrogens, Conjugated [Premarin] 1.25 mg PO DAILY 12/10/20 12/11/20 History Hydrocodone/Acetaminophen 1 tab PO BID 12/10/20 12/11/20 History [Hydrocodone-Acetamin 5-325 mg] Allergies Allergy/AdvReac Type Severity Reaction Status Date / Time No Known Allergies Allergy Verified 09/12/19 14:00 Exam Vital signs and Labs for Last 24 Hours: Temp Pulse Resp BP Pulse Ox 98.2 F 69 20 123/79 99 12/12/20 08:00 12/12/20 08:00 12/12/20 08:00 12/12/20 08:00 12/12/20 08:00 Laboratory Results - last 24 hr 12/12/20 06:10: WBC 6.5, RBC 4.19 L, Hgb 12.9, Hct 38.5, MCV 92.0, MCH 30.8, MCHC 33.5, RDW 13.3, Plt Count 222, MPV 8.0, Neut % (Auto) 57.1, Lymph % (Auto) 34.6, [place] % (Auto) 5.8, Eos % (Auto) 2.1, Baso % (Auto) 0.4, Neut # (Auto) 3.7, Lymph # (Auto) 2.3, [place] # (Auto) 0.4, Eos # (Auto) 0.1, Baso # (Auto) 0.0 12/12/20 06:10: Sodium 137, Potassium 3.4 L, Chloride 108 H, Carbon Dioxide 27, Anion Gap 5.4, BUN 4 L D, Creatinine 0.50 L, Estimated Creat Clear 130, Estimated GFR 133, Est GFR ( Amer) 161, Glucose 94, Calcium 8.3 L, Magnesium 1.9, Total Bilirubin 0.5, AST 74 H D, ALT 109 H D, Alkaline Phosphatase 100, Total Protein 6.3, Albumin 3.4 L, Globulin 2.9, Albumin/Globulin Ratio 1.2 I & O for Last 24 hours: Intake & Output 12/10/20 12/11/20 12/12/20 12/13/20 11:59 11:59 11:59 11:59 Intake Total 2049 1200 / 1200 Output Total 120 / 120 Balance 2049 1080 / 1080 Weight 129 lb 1 oz 129 lb 3 oz - Constitutional no acute distress - *Routine HEENT Exam Head: Present: normocephalic Eye: Present: EOMI, PERRL ENT: Present: mucous membranes moist - *Routine Neck Exam Present: supple. Absent: lymphadenopathy - *Routine Respiratory Exam Present: CTA bilaterally - *Routine Cardiovascular Exam Present: RRR - *Routine Abdominal Exam Present: soft, normoactive bowel sounds, tenderness Comments: She has some tenderness in the upper abdomen. She has very well-healed low midline laparotomy scar. - *Routine Extremities Exam Absent: cyanosis, clubbing, edema - *Routine Skin Exam Present: warm. Absent: rash - *Routine Neurological Exam Present: alert, orient
--- NOTE | 2020-12-12 14:22 | HMH.PROC ---
[facility] Procedure Note Procedure Note:: ERCP procedure Report: Endoscopic retrograde cholangiopancreatography with biliary sphincterotomy, balloon extraction and biliary stent placement Endoscopist: Arsen De Souza II, MD Referring Physician: Pal Leavitt MD ([facility]) Date of Procedure: December 12, 2020 Equipment: Olympus 180 side viewing endoscope duodenoscope Sedation: MAC sedation Indication: Mrs. Coleman is a 45-year-old female who presents with pain across the upper abdomen for the last couple of weeks. On Saturday evening she had more significant pain in the upper abdomen with nausea, gagging, lightheadedness and diaphoresis. She did go to the emergency department. She did have labs and CT scan. Her lab work showed ALT 113, AST 265, alkaline phosphatase 113 and total bilirubin was within normal range. Her amylase 1978 and lipase 40,976 were markedly elevated. Her CAT scan did not show any evidence of interstitial pancreatitis. The CAT scan did show mild prominence of the common hepatic duct with gallstones and possibly gallbladder wall thickening and pericholecystic fluid. Her subsequent ultrasound of the gallbladder showed gallstones, gallbladder wall thickening and tenderness over the gallbladder but no pericholecystic fluid. There was also suspicion of choledocholithiasis. The patient did initially have some darkened urine but reports no acholic stools. She is not jaundiced. The patient does have a history of Crohn's disease and is being followed by Dr. Devonte Davis in [place]. Procedure: Prior to the procedure, a history and physical exam was performed, and patient's medications and allergies were reviewed. The risks, benefits and alternatives of the sedation and procedure were discussed with the patient. All questions were answered and informed consent was obtained. The patient was brought to the fluoroscopic radiology room. Patient identification and proposed procedure were verified by the physician and the nurse. The patient was placed in a swimmer's position between left lateral decubitus and prone position and the scope was passed under direct vision. Throughout the procedure, the patient's blood pressure, pulse, and oxygen saturations were monitored continuously. The ERCP was accomplished without difficulty. The patient tolerated the procedure well. Findings: The scope was advanced directly into the upper esophagus and passed to the second portion of the duodenum. The esophagus, stomach and duodenum were grossly normal. The ampulla was well visualized. Both the pancreatic duct and the common bile duct were selectively cannulated. The pancreatogram showed a normal pancreatic duct in the head, neck and proximal body of the pancreatic duct with no strictures or ductular ectasias. The pancreatic duct was approximately 2 to 3 mm. The common bile duct was cannulated. There was a filling defect in the distal common bile duct and the common bile duct was 9 mm with a 7 to 8 mm filling defect. A generous biliary sphincterotomy was performed. There was normal filling of the intrahepatic biliary system. There was minimal filling of the cystic duct and nonfilling of the gallbladder. A sweeping balloon was placed at the hilum and swept through the biliary system 3-4 times and there was some debris. It was felt that there may be some proximal sludge or stone that was either within some of the cystic duct or proximal biliary system that was not easily swept. A 10 Sw[place]/7 cm straight stent was deployed into the biliary system to maintain biliary decompression. The procedure was then ended. Impression: 1. Choledocholithiasis (common bile duct stone) with cholangiographic evidence of cholecystitis status post balloon sweep and biliary stent placement Plan: The patient can now undergo elective cholecystectomy. I would recommend to remove the biliary stent in 10 to 12 weeks with complete clearance of the biliary system
--- NOTE | 2020-12-12 15:25 | P.PN_ITS ---
[facility] Anesthesia Checklist - Patient Identification Patient Identification: Arm Band - Structural Data Admitted From: Inpatient Planned Operative Procedure/s: ercp Consent for Planned Operative Procedure(s) Verified: Yes Verified Documents: Surgical Consent, History and Physical - NPO Status Verified Time NPO: 00:00 - Additional verifications Anesthesia Reactions: No - Airway Assessment C-Spine Mobility Assessed: Yes (mp2) TMJ Mobility Assessed: Yes Dentition: Good Dentition - Neurological Assessment Level of Consciousness: Awake, Alert - Anesthesia Plan Anesthesia Risk discussed: Yes Anesthesia Plan: Verified ASA Class: II Anesthesia Type: MAC [facility] History I have reviewed the patient's past medical history: Yes Medical History: Reports:: Asthma Denies:: Cancer, Diabetes Mellitus Type 1, Diabetes Mellitus Type 2, MRSA *Have you ever received a pneumonia vaccine?: No *Have you received a flu vaccine this season?: No Other Medical History: Reports: Hormone Therapy Anesthesia experience/problems:: nac Other Surgeries: Yes: Colonoscopy, EGD, Hysterectomy-Total Amputation: No Fractures: No - *Social History Last grade of school completed: Advanced degree Smoking Status: Current every day smoker Tobacco Type: cigarettes # Packs/Day (cigarettes): 1 Alcohol Intake: never Substance Use Type: denies use *Occupational Status:: unemployed Housing: house Household Members: spouse *Travel in the last 8 weeks: None Family Hx:: Cancer, Heart Attack, Thyroid Disorder
--- NOTE | 2020-12-12 16:15 | PC.NURSE ---
1520 Report received from Mavis Bender, RN [id number] Pt to room 204 at this time, bed locked and in lowest position, side rails up x2, no needs voiced by pt.
--- NOTE | 2020-12-12 16:35 | PC.NURSE ---
[id number] RN reassessment completed. Pt is S/P ERCP with frequent VS, WNL. A & O X4. Pt had recent c/o pain in abdomen, specifically LUQ. Pt received PRN pain medication, will monitor for relief. IV is patent and infusing NS at 100 ML/HR without difficulty. Lung sounds CTA with no c/o SOA. Abd soft with BS active in all quads. Pt is tolerating sips and chips well, per Dr. De Souza order. Visitor at bedside, call light within reach, will continue to monitor.
[2020-12-13] VITALS (8 sets, daily range): BP systolic 105–126; BP diastolic 50–74; PULSE 72–85; RESP 16–17; TEMP 36.7–37.1; O2SAT 97–100; BMI 22.6
--- NOTE | 2020-12-13 02:28 | PC.NURSE ---
A&OX4. PT HAS TOLERATED RA WELL THROUGHOUT SHIFT. RESPIRATIONS REGULAR AND UNLABORED. LUNG SOUNDS BILATERALLY CLEAR. NO COUGH NOTED. ACTIVE BOWEL SOUNDS HEARD IN ALL 4 QUADRANTS. SOFT AND NONTENDER ABDOMEN. NO BM THUS FAR. PT VOIDS PER BATHROOM INDEPENDENTLY. STEADY GAIT NOTED. NO EDEMA NOTED. HAND STENCILING MACHINE TENDER EQUAL. +2 PULSES NOTED. PT REPORTED PAIN ONCE AND RECEIVED MORPHINE. ON REASSESSMENT, SHE STATED PAIN WAS TOLERABLE. NS INFUSING AT 100ML/HR. PT HAS TOLERATED ICE CHIPS WELL. NO REPORTS OF NAUSEA THUS FAR. BED IN LOWEST POSITION. CALL LIGHT WITHIN REACH. VSS. WILL CONTINUE TO MONITOR.
--- NOTE | 2020-12-13 06:50 | HMH.ACPN2 ---
Internal Medicine - PN: Subj *Date: 12/13/20 *Time: 11:07 Interval history: Continues to have some mild nausea this morning. Remains afebrile however. Pain improved. Status post ERCP yesterday with stent placement. Still awaiting labs, will review when they return. Surgeon has been in this morning, plan for elective cholecystectomy tomorrow. Patient tolerating clear liquid diet at this time. Denies chest pain, shortness of breath, confusion, diarrhea Exam Vital signs and Labs for Last 24 Hours: Temp Pulse Resp BP Pulse Ox 98.1 F 72 16 112/61 99 12/13/20 04:00 12/13/20 04:00 12/13/20 04:00 12/13/20 04:00 12/13/20 04:00 Laboratory Results - last 24 hr 12/12/20 06:10: WBC 6.5, RBC 4.19 L, Hgb 12.9, Hct 38.5, MCV 92.0, MCH 30.8, MCHC 33.5, RDW 13.3, Plt Count 222, MPV 8.0, Neut % (Auto) 57.1, Lymph % (Auto) 34.6, Upton % (Auto) 5.8, Eos % (Auto) 2.1, Baso % (Auto) 0.4, Neut # (Auto) 3.7, Lymph # (Auto) 2.3, Upton # (Auto) 0.4, Eos # (Auto) 0.1, Baso # (Auto) 0.0 12/12/20 06:10: Sodium 137, Potassium 3.4 L, Chloride 108 H, Carbon Dioxide 27, Anion Gap 5.4, BUN 4 L D, Creatinine 0.50 L, Estimated Creat Clear 130, Estimated GFR 133, Est GFR ( Amer) 161, Glucose 94, Calcium 8.3 L, Magnesium 1.9, Total Bilirubin 0.5, AST 74 H D, ALT 109 H D, Alkaline Phosphatase 100, Total Protein 6.3, Albumin 3.4 L, Globulin 2.9, Albumin/Globulin Ratio 1.2 I & O for Last 24 hours: Intake & Output 12/10/20 12/11/20 12/12/20 12/13/20 23:59 23:59 23:59 23:59 Intake Total 3130 / 3250 240 / 240 1349 / 1349 Output Total 120 / 120 Balance 3010 / 3130 240 / 240 1349 / 1349 Weight 56.699 kg 58.542 kg 58.598 kg 57.833 kg Narrative: - Constitutional no acute distress, average body habitus, cooperative - *Routine HEENT Exam Head: Present: normocephalic Eye: Present: EOMI, PERRL ENT: Present: mucous membranes moist - *Routine Neck Exam Present: supple. Absent: lymphadenopathy - *Routine Respiratory Exam Present: CTA bilaterally - *Routine Cardiovascular Exam Present: RRR - *Routine Abdominal Exam Present: soft, normoactive bowel sounds, intervaly improved tenderness, no guarding or rebound - *Routine Extremities Exam Absent: cyanosis, clubbing, edema - *Routine Skin Exam Present: warm. Absent: rash - *Routine Neurological Exam Present: alert, oriented X3 - Routine Psychiatric Exam Present: normal affect, normal thought process, good judgment Assessment and Plan (1) Choledocholithiasis with acute cholecystitis Status: Acute Category: Medical Code(s): K80.42 - Calculus of bile duct with acute cholecystitis without obstruction (2) Pancreatitis, acute Status: Acute Qualifiers: Pancreatitis type: biliary Acute pancreatitis complication: no infection or necrosis Qualified Code(s): K85.10 - Biliary acute pancreatitis without necrosis or infection Category: Medical Code(s): K85.90 - Acute pancreatitis without necrosis or infection, unspecified (3) Crohn's disease Status: Chronic Qualifiers: Gastrointestinal tract location: unspecified location Digestive disease complication type: unspecified complication Qualified Code(s): K50.919 - Crohn's disease, unspecified, with unspecified complications Category: Medical Code(s): K50.90 - Crohn's disease, unspecified, without complications (4) Tobacco use Status: Chronic Category: Social Hx Code(s): Z72.0 - Tobacco use - Assessment and plan all Dx Assessment and Plan for all problems:: Status post ERCP yesterday with removal of ductal stones and placement of stent by GI. Patient tolerated procedure well. Clear liquid diet today. Surgery consulted for possible cholecystectomy. Planning to take to the OR tomorrow for removal. Patient symptoms otherwise improving. Labs normalizing. Discharge anticipated after surgical intervention.
[2020-12-13 07:03] LABS: Basophils % 0.3 % (0.1-2.0); Eosinophils % 0.2 % (0.1-12.0); Hematocrit 39.5 % (37.0-47.0); Hemoglobin 13.4 g/dL (12.2-16.2); Lymphocytes # 1.7 K/mm3 (0.7-4.5); Lymphocytes % 14.3 % (10-50); Mean Corpuscular HGB Conc 33.9 g/dL (31.8-35.4); Mean Corpuscular Volume 91.6 fl (81-99); Mean Platelet Volume 8.2 fl (7.4-10.4); Monocytes # 0.4 K/mm3 (0.1-1.0); Monocytes % 3.5 % (1.7-9.3); Neutrophils # 9.8 K/mm3 (1.8-7.8); Neutrophils % 81.6 % (37.0-80.0); Platelet Count 248 K/mm3 (142-424); Red Blood Count 4.31 M/mm3 (4.20-5.40); Red Cell Distribution Width 13.1 % (11.5-17.5)
[2020-12-13 07:13] LABS: Alanine Aminotransferase 78 U/L (12-78); Albumin Level 3.6 g/dl (3.5-5.0); Albumin/Globulin Ratio 1.2 (1.1-1.8); Alkaline Phosphatase 119 U/L (38-126); Anion Gap 18.5 mEq/L (5-15); Aspartate Amino Transferase 50 U/L (14-36); Bilirubin,Total 0.6 mg/dl (0.2-1.3); Blood Urea Nitrogen 7 mg/dl (7-17); Calcium 8.3 mg/dl (8.4-10.2); Carbon Dioxide 13 mmol/L (22.0-30.0); Chloride 107 mmol/L (98-107); Creatinine Clearance Estimated 128 mL/min (50-200); Estimated Glomerular Filt Rate 133 ml/min (>60); GFR (African American) 161 ML/MIN (>60); Potassium 3.5 mmoL/L (3.5-5.1); Sodium 135 mmol/L (136-145); Total Protein,Serum 6.6 g/dl (6.3-8.2)
--- NOTE | 2020-12-13 07:18 | P.PN_ITS ---
Subjective Narrative: Patient underwent ERCP with sphincterotomy and stent placement for choledocholithiasis yesterday. She still does feel nauseated. Of note, ERCP revealed nonfilling of the gallbladder suggestive of acute cholecystitis versus cystic duct stone. Progress Note: A&P (1) Choledocholithiasis with acute cholecystitis Status: Acute (2) Pancreatitis, acute Status: Acute (3) Crohn's disease Status: Chronic (4) Tobacco use Status: Chronic Assessment and Plan for All Diagnoses:: Clear liquid diet today. Tentatively plan cholecystectomy tomorrow. Exam Vital signs and Labs for Last 24 Hours: Temp Pulse Resp BP Pulse Ox 98.1 F 72 16 112/61 99 12/13/20 04:00 12/13/20 04:00 12/13/20 04:00 12/13/20 04:00 12/13/20 04:00 Laboratory Results - last 24 hr 12/12/20 06:10: WBC 6.5, RBC 4.19 L, Hgb 12.9, Hct 38.5, MCV 92.0, MCH 30.8, MCHC 33.5, RDW 13.3, Plt Count 222, MPV 8.0, Neut % (Auto) 57.1, Lymph % (Auto) 34.6, Reeves % (Auto) 5.8, Eos % (Auto) 2.1, Baso % (Auto) 0.4, Neut # (Auto) 3.7, Lymph # (Auto) 2.3, Reeves # (Auto) 0.4, Eos # (Auto) 0.1, Baso # (Auto) 0.0 12/13/20 06:39: WBC 12.0 H D, RBC 4.31, Hgb 13.4, Hct 39.5, MCV 91.6, MCH 31.0, MCHC 33.9, RDW 13.1, Plt Count 248, MPV 8.2, Neut % (Auto) 81.6 H, Lymph % (Auto) 14.3, Reeves % (Auto) 3.5, Eos % (Auto) 0.2, Baso % (Auto) 0.3, Neut # (Auto) 9.8 H, Lymph # (Auto) 1.7, Reeves # (Auto) 0.4, Eos # (Auto) 0.0, Baso # (Auto) 0.0 I & O for Last 24 hours: Intake & Output 12/10/20 12/11/20 12/12/20 12/13/20 11:59 11:59 11:59 11:59 Intake Total 2049 1200 / 1200 1469 / 1469 Output Total 120 / 120 Balance 2049 1080 / 1080 1469 / 1469 Weight 129 lb 1 oz 129 lb 3 oz 127 lb 8 oz - *Routine Abdominal Exam Present: soft
[2020-12-13 07:54] LABS: Glucose 50 mg/dl (74-100)
--- NOTE | 2020-12-13 17:24 | PC.NURSE ---
Pt medicated for nausea and pain per MAR this shift. Remains on room air. Lungs CTA. Abdomen soft, tender w/ hypoactive BS. Skin intact. Pt showered and linens changed this shift. Pt independent w/ ADL's. No needs voiced @ this time. VSS
[2020-12-14] VITALS (20 sets, daily range): BP systolic 111–156; BP diastolic 62–88; PULSE 67–83; RESP 16–18; TEMP 36.1–43; O2SAT 98–100; BMI 22.1
--- NOTE | 2020-12-14 04:34 | PC.NURSE ---
Addendum entered by Radha Dozier RN 12/14/20 07:35: Pre op checklist complete, consent signed and bag of LR hanging in room at this time. Original Note: Pt is A&Ox4. Lungs CTA. No cough noted this shift. Hypoactive bowel sounds in BLQ. No BM noted this shift. PRN pain meds and antiemetics administered x1 per MAR. No other acute changes or complaints at this time.
--- NOTE | 2020-12-14 07:32 | P.PN_ITS ---
Subjective Patient reports: feels better Progress Note: A&P (1) Choledocholithiasis with acute cholecystitis Status: Acute (2) Pancreatitis, acute Status: Acute (3) Crohn's disease Status: Chronic (4) Tobacco use Status: Chronic Assessment and Plan for All Diagnoses:: Plan cholecystectomy later today. Exam Vital signs and Labs for Last 24 Hours: Temp Pulse Resp BP Pulse Ox 98.2 F 81 16 128/66 100 12/14/20 04:00 12/14/20 04:00 12/14/20 04:00 12/14/20 04:00 12/14/20 04:00 Laboratory Results - last 24 hr 12/13/20 06:39: Sodium 135 L, Potassium 3.5, Chloride 107, Carbon Dioxide 13 L D , Anion Gap 18.5 H, BUN 7 D, Creatinine 0.50 L, Estimated Creat Clear 128, Estimated GFR 133, Est GFR ( Amer) 161, Glucose 50 L, Calcium 8.3 L, Total Bilirubin 0.6, AST 50 H D, ALT 78 D, Alkaline Phosphatase 119, Total Protein 6.6, Albumin 3.6, Globulin 3.0, Albumin/Globulin Ratio 1.2 I & O for Last 24 hours: Intake & Output 12/11/20 12/12/20 12/13/20 12/14/20 11:59 11:59 11:59 11:59 Intake Total 2049 1200 / 1200 1589 / 1589 240 / 240 Output Total 120 / 120 Balance 2049 1080 / 1080 1589 / 1589 240 / 240 Weight 129 lb 1 oz 129 lb 3 oz 127 lb 8 oz - Constitutional no acute distress
[2020-12-14 07:47] LABS: Basophils # 0.1 K/mm3 (0-0.2); Basophils % 0.6 % (0.1-2.0); Eosinophils # 0.2 K/mm3 (0.0-0.4); Hematocrit 36.2 % (37.0-47.0); Hemoglobin 11.9 g/dL (12.2-16.2); Lymphocytes # 2.4 K/mm3 (0.7-4.5); Lymphocytes % 29.5 % (10-50); Mean Corpuscular HGB Conc 32.8 g/dL (31.8-35.4); Mean Corpuscular Hemoglobin 29.7 pg (27.0-31.2); Mean Corpuscular Volume 90.5 fl (81-99); Mean Platelet Volume 7.7 fl (7.4-10.4); Monocytes # 0.5 K/mm3 (0.1-1.0); Neutrophils # 5.1 K/mm3 (1.8-7.8); Neutrophils % 61.9 % (37.0-80.0); Platelet Count 236 K/mm3 (142-424); Red Cell Distribution Width 12.8 % (11.5-17.5); White Blood Count 8.2 K/mm3 (4.8-10.8)
[2020-12-14 07:59] LABS: Alanine Aminotransferase 57 U/L (12-78); Albumin Level 3.4 g/dl (3.5-5.0); Albumin/Globulin Ratio 1.1 (1.1-1.8); Alkaline Phosphatase 89 U/L (38-126); Anion Gap 8.4 mEq/L (5-15); Aspartate Amino Transferase 31 U/L (14-36); Bilirubin,Total 0.4 mg/dl (0.2-1.3); Blood Urea Nitrogen 2 mg/dl (7-17); Calcium 8.1 mg/dl (8.4-10.2); Carbon Dioxide 22 mmol/L (22.0-30.0); Chloride 108 mmol/L (98-107); Creatinine Clearance Estimated 126 mL/min (50-200); Estimated Glomerular Filt Rate 133 ml/min (>60); GFR (African American) 161 ML/MIN (>60); Glucose 87 mg/dl (74-100); Magnesium 1.7 mg/dl (1.6-2.3); Potassium 3.4 mmoL/L (3.5-5.1); Sodium 135 mmol/L (136-145); Total Protein,Serum 6.4 g/dl (6.3-8.2)
--- NOTE | 2020-12-14 08:38 | HMH.ACPN2 ---
Internal Medicine - PN: Subj *Date: 12/14/20 *Time: 08:38 Interval history: Overall patient is doing well, minimal pain overnight, ready for surgery this morning for cholecystectomy. Exam Vital signs and Labs for Last 24 Hours: Temp Pulse Resp BP Pulse Ox 98.2 F 81 16 128/66 100 12/14/20 04:00 12/14/20 04:00 12/14/20 04:00 12/14/20 04:00 12/14/20 04:00 Laboratory Results - last 24 hr 12/14/20 06:45: WBC 8.2 D, RBC 4.00 L, Hgb 11.9 L, Hct 36.2 L, MCV 90.5, MCH 29.7, MCHC 32.8, RDW 12.8, Plt Count 236, MPV 7.7, Neut % (Auto) 61.9, Lymph % (Auto) 29.5, Wagoner % (Auto) 6.0, Eos % (Auto) 2.0, Baso % (Auto) 0.6, Neut # (Auto) 5.1, Lymph # (Auto) 2.4, [place]agoner # (Auto) 0.5, Eos # (Auto) 0.2, Baso # (Auto) 0.1 12/14/20 07:08: Sodium 135 L, Potassium 3.4 L, Chloride 108 H, Carbon Dioxide 22 D, Anion Gap 8.4, BUN 2 L D, Creatinine 0.50 L, Estimated Creat Clear 126, Estimated GFR 133, Est GFR ( Amer) 161, Glucose 87, Calcium 8.1 L, Magnesium 1.7 D, Total Bilirubin 0.4, AST 31 D, ALT 57 D, Alkaline Phosphatase 89, Total Protein 6.4, Albumin 3.4 L, Globulin 3.0, Albumin/Globulin Ratio 1.1 I & O for Last 24 hours: Intake & Output 12/11/20 12/12/20 12/13/20 12/14/20 11:59 11:59 11:59 11:59 Intake Total 2049 1200 / 1200 1589 / 1589 240 / 240 Output Total 120 / 120 Balance 2049 1080 / 1080 1589 / 1589 240 / 240 Weight 129 lb 1 oz 129 lb 3 oz 127 lb 8 oz 125 lb 6 oz Narrative: Alert, pleasant, normal vital signs, neurologically intact. Abdominal exam per surgery Assessment and Plan (1) Choledocholithiasis with acute cholecystitis Status: Acute Category: Medical Code(s): K80.42 - Calculus of bile duct with acute cholecystitis without obstruction (2) Pancreatitis, acute Status: Acute Qualifiers: Pancreatitis type: biliary Acute pancreatitis complication: no infection or necrosis Qualified Code(s): K85.10 - Biliary acute pancreatitis without necrosis or infection Category: Medical Code(s): K85.90 - Acute pancreatitis without necrosis or infection, unspecified (3) Crohn's disease Status: Chronic Qualifiers: Gastrointestinal tract location: unspecified location Digestive disease complication type: unspecified complication Qualified Code(s): K50.919 - Crohn's disease, unspecified, with unspecified complications Category: Medical Code(s): K50.90 - Crohn's disease, unspecified, without complications (4) Tobacco use Status: Chronic Category: Social Hx Code(s): Z72.0 - Tobacco use - Assessment and plan all Dx Assessment and Plan for all problems:: Current plan in place, surgery today. If able to be accomplished this morning without problems would consider discharge tonight if symptoms warrant.
[2020-12-14 09:20] LABS: HCG Qualitative, Serum Negative (Negative)
--- NOTE | 2020-12-14 12:53 | HMH.OPNOTE ---
Date of procedure: 12/14/20 Pre-op Diagnosis:: Cholecystitis, choledocholithiasis Post-op Diagnosis:: Same Procedure performed:: Laparoscopic cholecystectomy Surgeon:: Jonn Lopez MD CADMIUM PLATER:: Other Anesthesia: PETER Estimated blood loss (mL): 25 Clinical Note:: Patient is a very pleasant 45-year-old female who presented to the emergency department in the evening of 12/10/2020 with acute onset of epigastric pain. This occurred postprandially with some nausea. She had radiation into the chest and around bilateral upper quadrants and into the back. Laboratory findings revealed abnormal liver function tests and elevation of pancreatic enzymes. CT abdomen was obtained showing distended gallbladder but no bridger stones. Ultrasound was able to be obtained and this showed findings suggestive of choledocholithiasis. Gastroenterology consultation as well as surgical consultations were obtained. On 12/12/2020 she underwent ERCP with stone extraction and sphincterotomy with biliary stent placement. She did have findings during ERCP consistent with cholecystitis and possible cystic duct stone. Plan was made to proceed with cholecystectomy Operative findings:: She has a somewhat distended gallbladder which was significantly thickened with findings of chronic inflammation. She had a chronically dilated cystic duct. There were some adhesions to the liver from previous open surgery. Operative note:: Patient was taken to the operating room. She was given preoperative intravenous antibiotics. In the operating room she was placed in a supine position. General anesthesia was induced via endotracheal tube. Abdomen was prepped and draped in the standard surgical fashion. Due to the fact that she had undergone a couple of previous midline laparotomies Veress needle was inserted through 1 mm incision in the left left subcostal region and CO2 pneumoperitoneum was achieved to 15 mmHg. 5 mm optical trocar was inserted in the right upper abdomen. Laparoscopic surveillance was carried out. She had no evidence of any adhesions to the midline and the 10 mm optical trocar was inserted inferior to the umbilicus. She was positioned in reverse Trendelenburg with left side down. A 10 mm trocar was inserted in the epigastrium and an additional 5 mm trocar was inserted in the right upper abdomen. She did have some adhesions to the right upper quadrant and to the liver and these were taken down using AMA ultrasonic harmonic christina and laparoscopic Metzenbaum dissection prior to placement of the additional trocar. Gallbladder was identified and grasped retracted anteriorly and superiorly over the dome of the liver. Gallbladder was quite thickened consistent with chronic inflammation with some mild to moderate distention. Dissection was carried out the neck of the gallbladder bluntly incising the visceral peritoneum. The peritoneum was chronically thickened. Ultimately the cystic duct and cystic artery were identified. Cystic duct was chronically dilated. Cystic duct was isolated and multiply clipped and then sharply divided. Cystic artery was carefully coagulated with AMA ultrasonic robotic christina and then divided. The gallbladder was dissected free from the liver in a retrograde fashion using AMA ultrasonic harmonic christina. Gallbladder was placed within an Endo Catch retrieval device and removed from the peritoneal cavity via the umbilical trocar site. Due to the dilatation of the cystic duct a PDS Endoloop was placed on the cystic duct as well as the previously placed clips. There appeared to be good hemostasis. Limited irrigation was performed. Trochars were removed as CO2 pneumoperitoneum was evacuated. Fascia at the umbilical incision was closed with a couple of 0 Vicryl sutures. Local anesthetic was infiltrated. Skin incisions were closed with 4-0 Monocryl in a subcuticular fashion. Steri-Strips and dressings were applied. Condition: stable Disposition: JACIEL
--- NOTE | 2020-12-14 13:03 | P.PN_ITS ---
[facility] Anesthesia Record Part I Intake, IV Amount: 1,000 Estimated blood loss (mL): 5 Urine output (mL): 0 Blood Pressure: 125/70 SaO2: 100 Pulse Rate: 83 Respiratory Rate: 18 Temperature: 97.0 F Patient is:: Awake Stable to PACU at:: 13:04
--- NOTE | 2020-12-14 14:00 | HMH.ANESII ---
[facility] Anesthesia Record Part II Discharge Time: 13:38 Destination: Medical Surgical Department PACU nurse assessment reviewed?: Yes Patient Condition:: Good Anesthesia Complications:: None Swallowing reflex intact?: Yes Cyanosis?: No Blood Pressure: 148/65 Pulse Rate: 72 Temperature: 97 F Mental Status: Alert & Oriented Pain level:: 5 Nausea and/or vomitting:: None Intake, IV Amount: 0
--- NOTE | 2020-12-14 15:30 | PC.NURSE ---
Since returning to floor from PACU pt has received pain meds per MAR w/ voiced relief. Remains on room air. Pt has 5 lap incisions w/ telfa and tegaderm in place. 4 of 5 are c/d/i, one on the outter right side has serosang drainage present. Pt has ambulated w/ assistance twice since arriving to floor. Has not passed flatus @ this time. Meal tray was brought to room and pt has ate some of the chips w/ no c/o nausea. remains @ bedside. Call fozia w/in reach. Have spoke w/ Dr. Catalan who states pt may be discharged this afternoon if she does well w/ diet and activity.
--- NOTE | 2020-12-14 17:14 | HMH.DCSUM ---
General - General Admission date:: 12/11/20 Discharge date: 12/14/20 HPI HPI: Ms. Coleman is a 45yo WF with Hx of Crohn's, tobacco use (1 pack a day for 5 years), who presents with abdominal pain to the ER. She presented yesterday after acute onset of burning epigastric pain at about 430. It occurred after eating and was associated with some nausea. Radiated to her back on both sides. Denies bridger emesis or diarrhea. Also had reported diaphoresis in the ER. Initial work-up with EKG had nonspecific ST depressions that resolved as her pain improved. Additionally she had gross abnormality with her liver and pancreas enzymes showing suspicion for pancreatitis, cholecyctitis, or other intra-abdominal pathology. CT abdomen was obtained showing distended gallbladder but no bridger stones. Ultrasound was able to be obtained as well which showed gallstones and stones within the common bile duct. Patient was made n.p.o., admitted to medicine for further management of choledocholithiasis with secondary pancreatitis. On assessment this morning, patient states she is feeling better. Reports she is actually had some discomfort after eating for a few days until acute severe onset yesterday caused her to come to the ER. Has seen a florist in [place] previously (Dr. Davis) for her Crohn's disease but has not seen him in quite some time. Denies any nausea at this time and pain well controlled. No shortness of breath, chest pain, palpitations, diarrhea, confusion. Tolerating ice chips Hospital Course Hospital Course: Patient was admitted, ultrasonography confirmed the diagnosis of choledocholithiasis with pancreatitis. She improved with supportive care and bowel rest. The day after admission ERCP was done by Dr. De Souza, with stent placement and ductal sweeping and stone removal without complications. She was again subjected to IV fluids, bowel rest and her pain improved, surgery was consulted and they performed an uncomplicated laparoscopic cholecystectomy this morning. She tolerated the procedure well, did well, is eating clear liquids and tolerating p.o. pain medications well this afternoon. Her exam has improved and she will be discharged home to follow-up with GI, surgery and in our office as scheduled. Objective Vital signs: Temp Pulse Resp BP Pulse Ox 98.1 F 76 16 129/73 100 12/14/20 16:30 12/14/20 16:30 12/14/20 16:30 12/14/20 16:30 12/14/20 16:30 no acute distress - *Routine HEENT Exam Head: Present: normocephalic Eye: Present: EOMI, PERRL ENT: Present: mucous membranes moist - *Routine Neck Exam Present: supple - *Routine Respiratory Exam Present: CTA bilaterally - *Routine Cardiovascular Exam Present: RRR - *Routine Abdominal Exam Present: soft. Absent: tenderness Comments: Expected tenderness. Surgical sites look good, no periumbilical or flank bruising. Minimal swelling - *Routine Extremities Exam Absent: cyanosis, clubbing, edema - *Routine Skin Exam Present: warm. Absent: rash - Detailed Eye Exam Eyelids: Bilateral normal inspection Results Labs on day of discharge: Labs from last 24 hours 12/14/20 12/14/20 12/14/20 07:08 07:08 06:45 WBC 8.2 D RBC 4.00 L Hgb 11.9 L Hct 36.2 L MCV 90.5 MCH 29.7 MCHC 32.8 RDW 12.8 Plt Count 236 MPV 7.7 Neut % (Auto) 61.9 Lymph % (Auto) 29.5 Callaway % (Auto) 6.0 Eos % (Auto) 2.0 Baso % (Auto) 0.6 Neut # (Auto) 5.1 Lymph # (Auto) 2.4 [place]away # (Auto) 0.5 Eos # (Auto) 0.2 Baso # (Auto) 0.1 Sodium 135 L Potassium 3.4 L Chloride 108 H Carbon Dioxide 22 D Anion Gap 8.4 BUN 2 L D Creatinine 0.50 L Estimated Creat Clear 126 Estimated GFR 133 Est GFR ( Amer) 161 Glucose 87 Calcium 8.1 L Magnesium 1.7 D Total Bilirubin 0.4 AST 31 D ALT 57 D Alkaline Phosphatase 89 Total Protein 6.4 A
== END 2020-12-14 17:53 | disposition home or self-care (01) | DRG 417 ==
LOC: ER 20:36 → 2ND 12-11 00:24
PROVIDERS: Internal Medicine Adolescent Medicine; Internal Medicine Gastroenterology; Surgery; Admitting Provider Internal Medicine Adolescent Medicine; Emergency Provider Emergency Medicine; PCP Family Medicine; Visit Provider Internal Medicine Adolescent Medicine
PROC: (CPT 43262; principal; 2020-12-12 14:00)
PROC: 0FT44ZZ Resection of Gallbladder, Percutaneous Endoscopic Approach (ICD-10-PCS; CPT 47562; principal; 2020-12-14 11:00)
DX: K80.42 Calculus of bile duct with acute cholecystitis without obstruction (principal); K85.90 Acute pancreatitis without necrosis or infection, unspecified; K50.90 Crohn's disease, unspecified, without complications; Z72.0 Tobacco use
CPT/HCPCS: 47562; 43262; 36415; 71046; 74177; 74330; 76705; 80048; 80053; 80061; 80076; 81001; 82150; 83690; 83735; 84145; 84484; 84703; 85007; 85025; 85651; 86140; 86328; 93005; 96365; 96366; 96375; 99284; C2617; J2405; Q9967

== ENCOUNTER → 2021-03-03 15:59 | Outpatient (CLI) | payer BC, SELFPAY ==
[2021-03-03 16:44] LABS: Coronavirus 19 IgG Antibody Negative (Negative); Coronavirus 19 IgM Antibody Negative (Negative)
== END ==
PROVIDERS: Internal Medicine Gastroenterology; Visit Provider Nurse Practitioner Obstetrics & Gynecology
DX: Z01.812 Encounter for preprocedural laboratory examination (principal); Z11.52 Encounter for screening for COVID-19
CPT/HCPCS: 36415; 86328

== ENCOUNTER 2021-03-06 13:11 | Day surgery (SDC) | payer BC, SELFPAY ==
[2021-03-01 13:36] VITALS: BMI 21.4
[2021-03-06] VITALS (7 sets, daily range): BP systolic 108–137; BP diastolic 58–82; PULSE 60–97; RESP 14–18; TEMP 36.2–36.9; O2SAT 94–100
--- NOTE | 2021-03-06 14:03 | FL_ITS ---
PROCEDURE: FL ERCP CLINICAL INDICATION: calculus of bile duct COMPARISON: RF FL ERCP from 12/12/2020 FINDINGS: Fluoroscopy time: 1 minutes and 31 seconds. 3 images are submitted demonstrating the endoscope in place with a catheter in the common bile duct and a wire up to the portal region. Multiple stones are present within a dilated common bile duct. Common bile duct measures 11-12 mm.. The common duct stones measure up to 6-8 mm. IMPRESSION: Choledocholithiasis Dictated by: David Garcia MD 03/09/2021 11:31 David Garcia MD in [place] 03/09/2021 11:31
--- NOTE | 2021-03-06 16:03 | P.PCN_ITS ---
[facility] Procedure Note Procedure Note:: ERCP procedure Report: Endoscopic retrograde cholangiopancreatography biliary stent removal, extension of sphincterotomy, epinephrine injection (submucosal injection) and balloon sweep (biliary clearance) Endoscopist: Arsen De Souza II, MD Referring Physician: Pal Leavitt MD Date of Procedure: March 06, 2021 Equipment: Olympus 180 side viewing endoscope duodenoscope Sedation: MAC sedation Indication: Mrs. Coleman is a 45-year-old female with choledocholithiasis. She did have biliary colic and gallstone pancreatitis and was hospitalized in November 2020. She did have an ERCP with me on December 12, 2020. At that time, I did remove debris and sludge. A biliary stent was placed. The patient has been markedly clinically improved. Today she returns asymptomatic for removal of the stent and final biliary clearance. She reports no abdominal pain, nausea or vomiting. Procedure: Prior to the procedure, a history and physical exam was performed, and patient's medications and allergies were reviewed. The risks, benefits and alternatives of the sedation and procedure were discussed with the patient. All questions were answered and informed consent was obtained. The patient was brought to the fluoroscopic radiology room. Patient identification and proposed procedure were verified by the physician and the nurse. The patient was placed in a swimmer's position between left lateral decubitus and prone position and the scope was passed under direct vision. Throughout the procedure, the patient's blood pressure, pulse, and oxygen saturations were monitored continuously. The ERCP was accomplished without difficulty. The patient tolerated the procedure well. Findings: The side-viewing duodenoscope was passed directly into the upper esophagus and advanced to the second portion of the duodenum. The biliary stent was identified and grasped with a snare and pulled in a retrograde fashion out the oropharynx. The scope was then reintroduced and passed to the second portion of the duodenum/ampulla. Next, the biliary system was selectively cannulated with a guidewire and cannula. A cholangiogram was performed and there was multiple filling defects in the mid and proximal biliary system with minor biliary dilation with a CBD diameter of 10 to 11 mm. Extension of the biliary sphincterotomy was performed. There was some active oozing of heme so 1-10,000 epinephrine was injected submucosally and utilized to provide hemostasis. This did control the minor hemorrhage. Next, the sweeping balloon was placed into the biliary system above the hilum and swept through the biliary system. There was initially 2 larger yellow-brown pigmented multifaceted solid stones. After 4 sweeps, there were an additional 6 bile duct stones that ranged in size from 6 to 9 mm. After complete clearance of the biliary system, a repeat cholangiogram showed no additional filling defects or stones. The pancreatic duct was not cannulated intentionally. Lastly, the sweeping balloon was placed at the ampulla to provide additional compression/hemostasis for 1 minute. The procedure was then ended. There was excellent biliary flow of bile and no further blood/heme identified. Impression: 1. Multiple common bile duct stones (8 stones ranging in size from 6 to 9 mm?cholesterol multifaceted solid stones). Plan: The patient will not require any further ERCP now that we have cleared the common bile duct. I do feel that there is a minor risk of recurrent biliary stones in the future. I will discuss the findings with the patient and family.
--- NOTE | 2021-03-06 16:44 | HMH.ANESCL ---
[facility] Anesthesia Checklist - Patient Identification Patient Identification: Arm Band - Structural Data Admitted From: Home Planned Operative Procedure/s: ERCP Consent for Planned Operative Procedure(s) Verified: Yes - NPO Status Verified Time NPO: 00:00 - Additional verifications Anesthesia Reactions: No - Airway Assessment Dentition: Good Dentition - Neurological Assessment Level of Consciousness: Awake, Alert Hx Seizures: No Numbness or tingling in extremities: No - Anesthesia Plan Anesthesia Risk discussed: Yes Anesthesia Plan: Verified ASA Class: II Anesthesia Type: MAC [facility] History I have reviewed the patient's past medical history: Yes Medical History: Reports:: Asthma Denies:: Cancer, Diabetes Mellitus Type 1, Diabetes Mellitus Type 2, Internal Pacemaker, MRSA, Seizures *Have you ever received a pneumonia vaccine?: No *Have you received a flu vaccine this season?: No Other Medical History: Reports: Hormone Therapy Anesthesia experience/problems:: None Other Surgeries: Yes: Cholecystectomy, Colonoscopy, EGD, Hysterectomy-Total. No: Pacemaker Amputation: No Fractures: No - *Social History Last grade of school completed: Advanced degree Smoking Status: Current every day smoker Tobacco Type: cigarettes # Packs/Day (cigarettes): 1 Alcohol Intake: never Substance Use Type: denies use *Occupational Status:: unemployed Housing: house Household Members: spouse *Travel in the last 8 weeks: None Family Hx:: Cancer, Heart Attack, Thyroid Disorder
== END 2021-03-06 17:43 | disposition home or self-care (01) ==
LOC: OUTP 13:13
PROVIDERS: PCP Family Medicine; Visit Provider Internal Medicine Gastroenterology
PROC: (CPT 43262; principal; 2021-03-06 14:00)
DX: K80.42 Calculus of bile duct with acute cholecystitis without obstruction (principal); K50.90 Crohn's disease, unspecified, without complications; J45.909 Unspecified asthma, uncomplicated; Z79.890 Hormone replacement therapy; Z90.49 Acquired absence of other specified parts of digestive tract; Z72.0 Tobacco use; Z80.9 Family history of malignant neoplasm, unspecified; Z82.3 Family history of stroke; Z83.49 Family history of other endocrine, nutritional and metabolic diseases
CPT/HCPCS: 43262; 43264; 43275; 74330; Q9967

== ENCOUNTER → 2021-08-14 13:31 | Outpatient (POV) | payer BC, SELFPAY | PROVIDERS: Visit Provider Nurse Practitioner Family | DX: Z00.00 Encounter for general adult medical examination without abnormal findings (principal) ==

== ENCOUNTER → 2021-08-28 17:02 | Outpatient (CLI) | payer BC, SELFPAY ==
[2021-08-28 18:30] LABS: Basophils # 0.1 K/mm3 (0-0.2); Basophils % 1.6 % (0.1-2.0); Eosinophils # 0.5 K/mm3 (0.0-0.4); Eosinophils % 5.4 % (0.1-12.0); Hematocrit 41.8 % (37.0-47.0); Lymphocytes # 2.9 K/mm3 (0.7-4.5); Lymphocytes % 34.5 % (10-50); Mean Corpuscular HGB Conc 33.4 g/dL (31.8-35.4); Mean Corpuscular Hemoglobin 30.9 pg (27.0-31.2); Mean Corpuscular Volume 92.5 fl (81-99); Mean Platelet Volume 8.5 fl (7.4-10.4); Monocytes # 0.4 K/mm3 (0.1-1.0); Monocytes % 5.1 % (1.7-9.3); Neutrophils # 4.5 K/mm3 (1.8-7.8); Neutrophils % 53.4 % (37.0-80.0); Platelet Count 317 K/mm3 (142-424); Red Blood Count 4.52 M/mm3 (4.20-5.40); Red Cell Distribution Width 12.9 % (11.5-17.5); White Blood Count 8.4 K/mm3 (4.8-10.8)
[2021-08-28 19:45] LABS: Alanine Aminotransferase 13 U/L (12-78); Albumin Level 3.8 g/dl (3.5-5.0); Albumin/Globulin Ratio 1.3 (1.1-1.8); Alkaline Phosphatase 71 U/L (38-126); Anion Gap 9.1 mEq/L (5-15); Aspartate Amino Transferase 20 U/L (14-36); Bilirubin,Total 0.3 mg/dl (0.2-1.3); Blood Urea Nitrogen 8 mg/dl (7-17); Calcium 8.9 mg/dl (8.4-10.2); Carbon Dioxide 27 mmol/L (22.0-30.0); Chloride 104 mmol/L (98-107); Estimated Glomerular Filt Rate 107 ml/min (>60); GFR (African American) 130 ML/MIN (>60); Globulin 2.9 g/dL (1.3-3.2); Glucose 100 mg/dl (74-100); Iron 99 ug/dL (37-170); Potassium 4.1 mmoL/L (3.5-5.1); Sodium 136 mmol/L (136-145); Total Protein,Serum 6.7 g/dl (6.3-8.2)
[2021-08-28 19:55] LABS: C-Reactive Protein 13.1 mg/L (0-4); Total Iron Binding Capacity 371 ug/dL (265-497)
[2021-08-28 20:02] LABS: 25-OH Vitamin D, Total 39.2 ng/mL (30-100)
[2021-08-28 20:21] LABS: Ferritin 50.4 ng/ml (6.24-137)
[2021-08-28 20:34] LABS: Erythrocyte Sedimentation Rate 14 mm/hr (0-20)
[2021-08-28 20:35] LABS: Vitamin B12 514 pg/mL (239-931)
== END ==
PROVIDERS: Visit Provider Nurse Practitioner Family
DX: K50.80 Crohn's disease of both small and large intestine without complications (principal)
CPT/HCPCS: 36415; 80053; 82306; 82607; 82728; 83540; 83550; 85025; 85651; 86140

== ENCOUNTER → 2022-03-13 16:36 | Outpatient (CLI) | payer BC, SELFPAY ==
--- NOTE | 2022-03-13 | XR_ITS ---
PROCEDURE INFORMATION: Exam: XR Left Hip Exam date and time: 03/13/2022 4:47 PM Age: 46 years old Clinical indication: Left hip; Patient HX: Alejandro hip pain TECHNIQUE: Imaging protocol: XR Left hip. Views: 2 or 3 views hip with pelvis when performed. COMPARISON: CT ABDOMEN PELVIS W CON 12/10/2020 10:31 PM FINDINGS: Bones/joints: Osteophytosis and eburnation of the sacroiliac and acetabular articulating surfaces. Soft tissues: Unremarkable. IMPRESSION: No acute fracture is identified. Osteoarthritis.
--- NOTE | 2022-03-13 | XR_ITS ---
PROCEDURE INFORMATION: Exam: XR Right Hip Exam date and time: 03/13/2022 4:47 PM Age: 46 years old Clinical indication: Hip pain; Right hip; Patient HX: RT hip and sciatic pain TECHNIQUE: Imaging protocol: XR Right hip. Views: 2 or 3 views hip with pelvis when performed. COMPARISON: CT ABDOMEN PELVIS W CON 12/10/2020 10:31 PM FINDINGS: Bones/joints: Osteophytosis and eburnation of the sacroiliac and acetabular articulating surfaces. Soft tissues: Unremarkable. IMPRESSION: No acute fracture is identified. Osteoarthritis
== END ==
PROVIDERS: PCP Family Medicine; Visit Provider Family Medicine
DX: M25.551 Pain in right hip (principal); M25.552 Pain in left hip
CPT/HCPCS: 73502

== ENCOUNTER → 2022-08-20 14:26 | Outpatient (CLI) | payer BC, SELFPAY ==
--- NOTE | 2022-08-20 | MM_ITS ---
PROCEDURE INFORMATION: Exam: MG Bilateral Diagnostic Breast Tomosynthesis Exam date and time: 08/20/2022 2:38 PM Age: 47 years old Clinical indication: Right breast pain; patient denies any palpable abnormalities TECHNIQUE: Imaging protocol: Bilateral Diagnostic tomosynthesis and 2D mammography including computer-aided detection (CAD) when performed. Unilateral or bilateral exam. COMPARISON: 1. MG MM DIG MAMM BI DX W/CAD 01/01/2020 1:20 PM 2. MG DXBI MM Dig mamm BI DX w/CAD 06/13/2018 2:33 PM FINDINGS: MAMMOGRAPHY: The breasts are heterogeneously dense, which may obscure small masses. There is no stellate mass, architectural distortion or suspicious microcalcifications in either breast to suggest malignancy. 0.6 cm round mass in the middle third of the left upper outer quadrant. No skin thickening or axillary adenopathy. IMPRESSION: Patient to return for bilateral breast ultrasound for further evaluation of a left breast mass as well as for further evaluation of right breast pain ASSESSMENT: BI-RADS Category 0: Incomplete- Need Additional Imaging Evaluation and/or Prior Mammograms for Comparison
== END ==
PROVIDERS: PCP Family Medicine; Visit Provider Family Medicine
DX: N60.11 Diffuse cystic mastopathy of right breast (principal); N60.12 Diffuse cystic mastopathy of left breast; Z80.3 Family history of malignant neoplasm of breast
CPT/HCPCS: 77062; 77066; G0279

== ENCOUNTER → 2022-09-25 15:28 | Outpatient (CLI) | payer BC, SELFPAY ==
--- NOTE | 2022-09-25 15:32 | US_ITS ---
PROCEDURE INFORMATION: Exam: US Right Breast, Complete Exam date and time: 09/25/2022 3:44 PM Age: 47 years old Clinical indication: RT breast pain TECHNIQUE: Imaging protocol: Complete ultrasound of all four quadrants of the Right breast and the retroareolar regions, including ultrasound of the axilla when performed. COMPARISON: US BREAST RT COMPLETE 01/01/2020 1:35 PM FINDINGS: Breast: Sonographic images of the right breast including the retroareolar region, all 4 quadrants and the axilla do not demonstrate any solid masses. Scattered subcentimeter cysts are noted. No architectural distortion or acoustical shadowing. No skin thickening or axillary adenopathy. Review of the patient's left breast sonogram performed 09/25/2022 demonstrates a 0.6 cm cyst in the left upper outer quadrant most closely corresponding to the mass on mammography. Review of the remainder of the left breast sonogram demonstrates stable simple and minimally debris-filled cysts. No suspicious solid masses are seen. IMPRESSION: No sonographic evidence of malignancy. Annual bilateral mammographic screening is recommended unless otherwise clinically indicated. ASSESSMENT: BI-RADS Category 2: Benign
--- NOTE | 2022-09-25 15:32 | US_ITS ---
PROCEDURE INFORMATION: Exam: US Left Breast, Complete, Abscess Evaluation Exam date and time: 09/25/2022 3:55 PM Age: 47 years old Clinical indication: Mass, lump, or swelling; Left; Additional info: Lt breast mass TECHNIQUE: Imaging protocol: Left Ultrasound of the breast with image documentation. All quadrants and retroareolar regions evaluated. Exam focused on the search and evaluation for abscess. Exam is an emergent request and a non-BIRADS study. COMPARISON: US BREAST LT COMPLETE 01/01/2020 1:49 PM FINDINGS: High resolution sonography of the LEFT breast demonstrates multiple anechoic cystic and a few complex hypoechoic nodules: . 1 o'clock 1 cm from the nipple: Cystic nodule measuring 5 x 6 x 6 mm 1 o'clock 2 cm from the nipple: Mildly complex cystic nodule measuring 3 x 4 x 5 mm 2 o'clock 2 cm from the nipple: Complex oval cystic versus solid hypoechoic nodule measuring 7 x 7 x 3 mm 3 o'clock 1 cm from the nipple: Complex oval cystic versus solid hypoechoic nodule measuring 7 x 6 x 3 mm 4 o'clock 3 cm from the nipple: Mildly complex cystic nodule measuring 3 x 5 x 6 mm. 7 o'clock 2 cm from the nipple: Cystic nodule measuring 7 x 7 x 9 mm . Morphologically normal appearing LEFT axillary neck lymph nodes with fatty hilum measuring up to 1 cm in the long axis. IMPRESSION: 1. Multiple anechoic cystic and a few complex hypoechoic nodules in the LEFT breast similar to a prior study. 2. Differential diagnosis benign cystic nodules, fibroadenomas and unlikely to represent malignancy. ASSESSMENT: BI-RADS 0: Need Additional Imaging Evaluation and/or Prior Mammograms For Comparison
== END ==
LOC: RAD 15:28
PROVIDERS: PCP Family Medicine; Visit Provider Family Medicine
DX: N60.11 Diffuse cystic mastopathy of right breast (principal); N60.12 Diffuse cystic mastopathy of left breast; Z80.3 Family history of malignant neoplasm of breast
CPT/HCPCS: 76641

== ENCOUNTER 2022-10-04 12:04 | Emergency (ER) | payer BC, SELFPAY ==
[2022-10-04 12:45] VITALS: BP 144/91; PULSE 72; RESP 18; TEMP 36.7; O2SAT 98; BMI 23.0
[2022-10-04 13:09] LABS: UTC Influenza A Antigen Positive (Negative)
[2022-10-04 13:10] LABS: UTC Influenza B Antigen Negative (Negative)
--- NOTE | 2022-10-04 13:44 | EXP.UTC ---
Discharge Plan Disposition Patient Disposition: Home, Self-Care Condition: Good Prescriptions Prescriptions: New azithromycin [Zithromax Z-Klever] 250 mg tablet See Rx Instructions .ROUTE .COMPLEX 5 Days Qty: 6 0RF Rx Instructions: For 250 mg dose pack: take 500 mg today (day 1), then 250 mg for 4 days (days 2-5) prednisone [prednisone] 20 mg tablet 20 mg PO BID 5 Days Qty: 10 0RF No Action albuterol sulfate 90 mcg/actuation HFA aerosol inhaler 1 inh IH Label Comments: INHALE 1 TO 2 PUFFS BY MOUTH EVERY 4 HOURS NEEDED FOR WHEEZING estradiol 2 mg tablet 2 mg PO DAILY Qty: 90 3RF hydrocodone-acetaminophen 1 EACH tablet 1 each PO BID Referrals Follow up/Referrals: Pal Leavitt [Primary Care Provider] - See instructions Activity Restrictions/Add. Instructions Additional Instructions/Restrictions: Take medication as prescribed Lots of rest Increase Fluids water, Gatorade, powerade, pedialyte,if /toddler/child Alternate Tylenol and / or ibuprofen as discussed for fever, aches, chills Follow up IMMEDIATELY with your family doctor for new or worsening Symptoms OR no noticeable improvement over the next 48-72 hours, 911 for difficulty or breathing You or your child area contagious until no fever, aches, chills for 24 hours with medication for symptoms Help Prevent the spread of influenza: ?Wash your hands often. Use soap and water. Wash your hands after you use the bathroom, change a child's diapers, or sneeze. Wash your hands before you prepare or eat food. Use gel hand cleanser that has 60% alcohol, when soap and water are not available. Do not touch your eyes, nose, or mouth unless you have washed your hands first. Cover your mouth when you sneeze or cough. Cough into a tissue or the bend of your arm. If you use a tissue, throw it away immediately and wash your hands. Clean shared items with a germ-killing cleaner and trimmer. Clean table surfaces, doorknobs, and light switches. Do not share towels, silverware, and dishes with people who are sick. Wash bed sheets, towels, silverware, and dishes with soap and water. Wear a mask over your mouth and nose if you are sick. The face mask may help protect others from becoming infected with the flu. Wear the mask when in common areas of your home or if you seek care with a healthcare provider. Stay away from others if you are sick. Stay at home until 24 hours after your fever and symptoms are gone. Clinical Impressions Clinical Impression: Influenza A, Bronchitis Instructions Patient Instructions: DI for Influenza -- Adult, Acute Bronchitis Discharge ED Provider: Mary King [facility] HPI General Stated complaint: SOA, Congestion, Cough, Fever Mode of Arrival: Ambulatory Source of Information: Patient Limitations: No Limitations Time Seen by Provider: 10/04/22 13:44 Description of Symptoms (Recalled from Triage Doc. by RN): PATIENT C/O FEVER, COUGH, SOA, AND HEADACHE SINCE SATURDAY HEENT Symptoms (Recalled from RN notes): Yes Resp Symptoms (Recalled from RN notes): Yes Skin Symptoms (Recalled from RN notes): No MS Symptoms (Recalled from RN notes): No Functional Status (Recalled from RN notes): WNL History of Present Illness Provider Complaint: Patient state that she started last week with fever chills and body aches state that she thinks she had the flu States that now she is still having some fever on and off but feels like it moved into her lungs States that she has a history of asthma and has been having chest congestion, cough and felt like she was starting to have bronchitis Related Data Home Medications Medication Instructions Recorded Confirmed hydrocodone 5 mg-acetaminophen 325 1 each PO BID chrons 03/01/21 06/05/22 mg tablet albuterol sulfate 90 mcg/actuation 1 inh inhalation
[2022-10-04 13:54] VITALS: BP 144/91; PULSE 72; RESP 18; TEMP 36.7; O2SAT 98
== END 2022-10-04 13:56 | disposition home or self-care (01) ==
PROVIDERS: Emergency Provider Nurse Practitioner; PCP Family Medicine
DX: J10.1 Influenza due to other identified influenza virus with other respiratory manifestations (principal); J40 Bronchitis, not specified as acute or chronic
CPT/HCPCS: 87804; 99212; G0463

== ENCOUNTER → 2023-08-28 08:08 | Outpatient (CLI) | payer BC, SELFPAY | PROVIDERS: PCP Family Medicine; Visit Provider Student in an Organized Health Care Education/Training Program | DX: J02.9 Acute pharyngitis, unspecified (principal); B95.1 Streptococcus, group B, as the cause of diseases classified elsewhere | CPT/HCPCS: 87070 ==

== ENCOUNTER → 2023-10-04 16:22 | Outpatient (CLI) | payer BC, SELFPAY ==
--- NOTE | 2023-10-04 16:25 | MM_ITS ---
PROCEDURE INFORMATION: Exam: MG Bilateral Screening 3D Mammography Exam date and time: 10/04/2023 4:21 PM Age: 48 years old Clinical indication: Screening examination TECHNIQUE: Imaging protocol: Bilateral Screening tomosynthesis and 2D mammography including computer-aided detection (CAD) when performed. COMPARISON: 1. MG MM DIG MAMM BI DX W/CAD 08/20/2022 2:38 PM 2. MG MM DIG MAMM BI DX W/CAD 01/01/2020 1:20 PM FINDINGS: MAMMOGRAPHY: Breast composition: The breasts are heterogeneously dense, which may obscure small masses. Mass: No new or suspicious masses Architectural distortion: None. Calcifications: No suspicious calcifications. Asymmetric density: None. Skin thickening: None. Axillary adenopathy: None. IMPRESSION: No mammographic evidence of malignancy. Annual screening is recommended unless otherwise clinically indicated. ASSESSMENT: BI-RADS Category 1: Negative
== END ==
PROVIDERS: PCP Family Medicine; Visit Provider Family Medicine
DX: Z12.31 Encounter for screening mammogram for malignant neoplasm of breast (principal)
CPT/HCPCS: 77063; 77067

== ENCOUNTER 2023-11-22 15:45 | Outpatient (CLI) | payer BC, SELFPAY ==
[2023-11-22 16:19] LABS: Basophils # 0.1 K/mm3 (0-0.2); Basophils % 0.9 % (0.1-2.0); Eosinophils # 0.3 K/mm3 (0.0-0.4); Eosinophils % 3.8 % (0.1-12.0); Hematocrit 43.7 % (37.0-47.0); Hemoglobin 14.8 g/dL (12.2-16.2); Lymphocytes # 2.3 K/mm3 (0.7-4.5); Lymphocytes % 26.1 % (10-50); Mean Corpuscular HGB Conc 33.8 g/dL (31.8-35.4); Mean Corpuscular Hemoglobin 31.1 pg (27.0-31.2); Mean Platelet Volume 8.5 fl (7.4-10.4); Monocytes # 0.4 K/mm3 (0.1-1.0); Monocytes % 4.7 % (1.7-9.3); Neutrophils # 5.7 K/mm3 (1.8-7.8); Neutrophils % 64.6 % (37.0-80.0); Platelet Count 223 K/mm3 (142-424); Red Blood Count 4.75 M/mm3 (4.20-5.40); Red Cell Distribution Width 13.7 % (11.5-17.5); White Blood Count 8.8 K/mm3 (4.8-10.8)
[2023-11-22 17:24] LABS: Alanine Aminotransferase 27 U/L (12-78); Albumin Level 4.4 g/dl (3.5-5.0); Albumin/Globulin Ratio 1.4 (1.1-1.8); Alkaline Phosphatase 63 U/L (38-126); Anion Gap 9.1 mEq/L (5-15); Aspartate Amino Transferase 32 U/L (14-36); Bilirubin,Total 0.3 mg/dl (0.2-1.3); Blood Urea Nitrogen 14 mg/dl (7-17); Calcium 8.7 mg/dl (8.4-10.2); Carbon Dioxide 25 mmol/L (22.0-30.0); Chloride 104 mmol/L (98-107); Estimated Glomerular Filt Rate 89 ml/min (>60); GFR (African American) 108 ML/MIN (>60); Globulin 3.1 g/dL (1.3-3.2); Glucose 99 mg/dl (74-100); Potassium 4.1 mmoL/L (3.5-5.1); Sodium 134 mmol/L (136-145); Total Protein,Serum 7.5 g/dl (6.3-8.2)
[2023-11-22 17:30] LABS: C-Reactive Protein 11.9 mg/L (0-4)
[2023-11-22 17:32] LABS: Erythrocyte Sedimentation Rate 14 mm/hr (0-20)
[2023-11-22 17:57] LABS: 25-OH Vitamin D, Total 35.3 ng/mL (30-100)
[2023-11-22 18:12] LABS: Vitamin B12 838 pg/mL (239-931)
[2023-11-22 18:54] LABS: Iron 66 ug/dL (37-170)
[2023-11-22 19:03] LABS: Total Iron Binding Capacity 366 ug/dL (265-497)
[2023-11-22 19:30] LABS: Ferritin 75.7 ng/ml (6.24-137)
== END 2023-11-22 23:59 ==
LOC: LAB 15:47
PROVIDERS: PCP Family Medicine; Visit Provider Nurse Practitioner Family
DX: K50.90 Crohn's disease, unspecified, without complications (principal); R10.84 Generalized abdominal pain; R63.4 Abnormal weight loss; R63.0 Anorexia
CPT/HCPCS: 36415; 80053; 82306; 82607; 82728; 83540; 83550; 85025; 85651; 86140

== ENCOUNTER 2024-04-05 12:01 | Emergency (ER) | payer BC, SELFPAY ==
--- NOTE | 2024-04-05 12:23 | ED_ITS ---
Discharge Plan Disposition Patient Disposition: Home, Self-Care Condition: Good Prescriptions Prescriptions: New amoxicillin 875 mg tablet 875 mg PO Q12H Qty: 20 0RF benzonatate 100 mg capsule 100 mg PO TIDP PRN (Reason: Cough) Qty: 30 0RF methylprednisolone 4 mg Tablets,Dose Pack 4 mg PO DIRECTED 6 Days Qty: 21 0RF Rx Instructions: Take 1 pack as directed for 6 days albuterol sulfate [Ventolin HFA] 90 mcg/actuation HFA aerosol inhaler 2 puff inhalation Q6H PRN (Reason: shortness of breath or wheezing) Qty: 6.7 0RF No Action hydrocodone-acetaminophen 5-325 mg tablet 1 tab PO DAILY Cenestin 1.25 mg Tablet 2.5 mg PO DAILY estradiol 2 mg tablet 2 mg PO DAILY Referrals Follow up/Referrals: Pal Leavitt MD [Primary Care Provider] - See instructions Activity Restrictions/Add. Instructions Additional Instructions/Restrictions: Drink plenty of fluids. Take tylenol or ibuprofen for pain or fever. Take the medications as directed. Follow up with your regular doctor. GO TO THE ER FOR ANY WORSENING SYMPTOMS Clinical Impressions Clinical Impression: Strep throat, Asthma exacerbation Instructions Patient Instructions: Strep Throat, DI for Strep Throat Discharge ED Provider: Ge Villafuerte [facility] General Stated complaint: fever, cough Time Seen by Provider: 04/05/24 12:23 History of Present Illness Provider Complaint: She states that for the past 3 days she has had sore throat, fever and malaise. She has had chest tightness and cough also. She has a history of asthma. Related Data Home Medications Medication Instructions Recorded Confirmed estradiol 2 mg tablet 2 mg PO DAILY 04/05/24 04/05/24 hydrocodone 5 mg-acetaminophen 325 1 tab PO DAILY 04/05/24 04/05/24 mg tablet synthetic conj estrogens A 1.25 mg 2.5 mg PO DAILY 04/05/24 04/05/24 tablet Previous Rx's Medication Instructions Recorded albuterol sulfate 90 mcg/actuation 2 puff inhalation Q6H PRN 04/05/24 aerosol inhaler (Ventolin HFA) shortness of breath or wheezing #6.7 grams amoxicillin 875 mg tablet 875 mg PO Q12H #20 tabs 04/05/24 benzonatate 100 mg capsule 100 mg PO TIDP PRN Cough #30 caps 04/05/24 methylprednisolone 4 mg tablets in 4 mg PO DIRECTED 6 days #21 tabs 04/05/24 a dose pack Allergies Allergy/AdvReac Type Severity Reaction Status Date / Time No Known Allergies Allergy Verified 08/27/23 15:27 [facility] Disclaimer: The information contained in this section may have been updated after the patient was seen, as this information can be updated by other users. Medical History (Updated 04/05/24 @ 13:10 by Ge Villafuerte APRN) Asthma Crohn's disease Surgical History (Updated 04/05/24 @ 12:42 by Beverly Winters RN) H/O tubal ligation History of hysterectomy History of cholecystectomy Family History Other Family history non-contributory Social History Smoking Status: Current every day smoker tobacco type: cigarettes packs per day: 1 alcohol intake: never substance use type: denies use current occupational status: unemployed Travel in the last 8 weeks: None household members: spouse housing: house current occupational exposures/hazards: No caffeine: Yes ROS Obtained: Yes All systems reviewed & no additional complaints except as documented Constitutional Constitutional: Reports chills and Reports fever(s) Eyes Eyes: Denies eye discharge ENT Ears, Nose, Mouth, and Throat: Reports as per HPI Cardiovascular Cardiovascular: Denies chest pain Respiratory Respiratory: Denies shortness of breath, Reports chest congestion, Reports cough, Denies stridor and Reports wheezing Gastrointestinal Gastrointestingal: Reports nausea; Denies abdominal pain, constipation, cramping, diarrhea or vomiting Musculoskeletal Musculoskeletal: Denies arthralgias Integumentary/Breasts Skin/Breast: Denies rash Neurologic Neurologic: Denies paresthesias Allergic/Immunologic Allergic/Immunologic: Reports wheezing Physical Exam General General appearance: alert and in no apparent distress Head Head exam: atraumatic, normocephalic and normal inspection Eye Eye exam: Present normal appearance, PERRL and EOMI ENT ENT exam: Present mucous membranes moist and normal external ear exam Expanded ENT Exam TM/Canal exam: Bilateral TM: erythema and bulging Nose exam: Absent sinus tenderness Mouth exam: Present normal external inspection; Absent drooling Teeth exam: Present normal inspection Throat exam: Present tonsillar erythema, tonsillomegaly and tonsillar exudate Neck Neck exam: Present normal inspection, full ROM and trachea midline; Absent tenderness, meningismus or lymphadenopathy Chest Chest inspection: Present normal inspection and symmetric chest wall rise; Absent tenderness Respiratory Respiratory exam: Present normal lung sounds bilaterally; Absent respiratory distress, wheezes, stridor or accessory muscle use Cardiovascular Cardiovascular exam: Present regular rate and normal rhythm; Absent systolic murmur or diastolic murmur Abdominal Exam Abdominal exam: Present soft and normal bowel sounds; Absent distention, tenderness, guarding, rebound or rigidity Extremities Exam Extremities exam: Present normal inspection and normal capillary refill; Absent calf tenderness Back Exam Back exam: Present normal inspection and full ROM; Absent tenderness, CVA tende rness (R) or CVA tenderness (L) Neurological Exam Neurological exam: Present alert, oriented X3 and CN II-XII intact Psychiatric Psychiatric exam: Present normal affect and normal mood Skin Skin exam: Present warm, dry, intact and normal color Medical Decision Making Medical Records Medical records reviewed: No I reviewed the patient's medical records. [place] Inquiry Pt receiving controlled substance: No Lab Data Lab results reviewed: Yes I reviewed the patient's lab results.
[2024-04-05 12:30] VITALS: BP 145/75; PULSE 97; RESP 20; TEMP 37.7; O2SAT 97; BMI 21.0
[2024-04-05 12:40] LABS: UTC Strep Screen (Rapid) Positive (Negative)
[2024-04-05 13:17] VITALS: BP 145/75; PULSE 97; RESP 20; TEMP 37.7; O2SAT 97
== END 2024-04-05 13:19 | disposition home or self-care (01) ==
PROVIDERS: Emergency Provider Nurse Practitioner Family; PCP Family Medicine
DX: J02.0 Streptococcal pharyngitis (principal); R50.9 Fever, unspecified; R05.9 Cough, unspecified; J45.901 Unspecified asthma with (acute) exacerbation; F17.210 Nicotine dependence, cigarettes, uncomplicated
CPT/HCPCS: 87880; 99212; 99214; G0463

== ENCOUNTER 2024-08-17 16:12 | Outpatient (CLI) | payer BC, SELFPAY ==
--- NOTE | 2024-08-17 | XR_ITS ---
FINAL REPORT CLINICAL HISTORY: hip pain COMPARISON: None FINDINGS: RIGHT HIP Two views of the right hip demonstrate no acute fracture or dislocation. The joint spaces appear normal. The visualized bony structures are well aligned. No soft tissue abnormality is seen. IMPRESSION: No acute bony abnormality. Reviewed, Interpreted and Dictated by Yung Aldana MD Transcribed by Sugar Vargas Authenticated and [facility]
--- NOTE | 2024-08-17 16:18 | XR_ITS ---
FINAL REPORT CLINICAL HISTORY: HIP PAIN FINDINGS: Left hip Three views were obtained. There is no acute fracture or dislocation. The joint spaces appear normal. No soft tissue abnormality is identified. IMPRESSION: No acute process. Reviewed, Interpreted and Dictated by Yung Aldana MD Transcribed by Wen Seay Authenticated and [facility]
== END 2024-08-17 23:59 | disposition home or self-care (01) ==
LOC: RAD 16:13
PROVIDERS: PCP Family Medicine; Visit Provider Family Medicine
DX: M25.551 Pain in right hip (principal); M25.552 Pain in left hip
CPT/HCPCS: 73502

== ENCOUNTER 2024-10-12 15:58 | Outpatient (CLI) | payer BC, SELFPAY ==
--- NOTE | 2024-10-12 | MM_ITS ---
PROCEDURE INFORMATION: Exam: MG Bilateral Screening 3D Mammography Exam date and time: 10/12/2024 3:46 PM Age: 49 years old Clinical indication: Screening examination TECHNIQUE: Imaging protocol: Bilateral Screening tomosynthesis and 2D mammography including computer-aided detection (CAD) when performed. COMPARISON: 1. MG MM DIG SCREENING MAMM BI W/CAD 10/04/2023 4:21 PM 2. MG MM DIG MAMM BI DX W/CAD 08/20/2022 2:38 PM FINDINGS: MAMMOGRAPHY: Breast composition: The breasts are heterogeneously dense, which may obscure small masses. Mass: No suspicious masses. Architectural distortion: None. Calcifications: No suspicious calcifications. Asymmetric density: None. Skin thickening: None. Axillary adenopathy: None. IMPRESSION: No mammographic evidence of malignancy. Annual screening is recommended unless otherwise clinically indicated. ASSESSMENT: BI-RADS Category 1: Negative.
== END 2024-10-12 23:59 | disposition home or self-care (01) ==
LOC: RAD 15:59
PROVIDERS: PCP Family Medicine; Visit Provider Family Medicine
DX: Z12.31 Encounter for screening mammogram for malignant neoplasm of breast (principal)
CPT/HCPCS: 77063; 77067